=== PATIENT | male | born 1950 | race Caucasian/White ===

== ENCOUNTER 2023-02-27 10:57 | Emergency (ER) | payer MEDICARE, SELFPAY ==
[2023-02-27 11:04] VITALS: BP 139/72; PULSE 84; RESP 16; TEMP 36.6; O2SAT 100
[2023-02-27 11:12] VITALS: BP 139/72; PULSE 84; RESP 16; TEMP 36.6; O2SAT 100
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
== END 2023-02-27 11:50 | disposition home or self-care (01) ==
PROVIDERS: Emergency Provider Registered Nurse
DX: J06.9 Acute upper respiratory infection, unspecified (principal); H92.02 Otalgia, left ear; I10 Essential (primary) hypertension; Z86.711 Personal history of pulmonary embolism
CPT/HCPCS: 99213; G0463

== ENCOUNTER 2025-02-08 18:31 | Emergency (ER) | payer MEDICARE, SELFPAY ==
[2025-02-08 18:36] VITALS: BP 160/84; PULSE 78; RESP 14; TEMP 36.6; O2SAT 99
--- OUTSIDE RECORDS SUMMARY | 2025-02-08 18:36 | XMS_ITS | Encounter Summary ---
Author Organization [facility] Address [address] [place] [address] Care Team Providers Care Hand Nailer Name Role Phone Hunter Mcneal MD Primary Care Provider [phone] Encounter Details Date Type Department Care Team (Late st Contact Info) Description 01/17/2004 Outpatient Historical [facility] MRI DEPT Hunter Mcneal MD [address] [place] [address] [address] [place] [address] CHRONIC SINUSITIS NOS (Primary Dx) Social History Tobacco Use Types Packs/Day Years Used Date Smoking Tobacco: Never Assessed Sex and Gender Information Value Date Recorded Sex Assigned at Male 01/24/2025 4:27 PM INSTRUCTIONAL SYSTEMS DESIGN CONSULTANT Legal Sex Male 2:43 AM INSTRUCTIONAL SYSTEMS DESIGN CONSULTANT Gender Identity Male 01/24/2025 4:27 PM INSTRUCTIONAL SYSTEMS DESIGN CONSULTANT Sexual Orientation Not on file documented as of this encounter Plan of Treatment Upcoming Encounters Date Type Department Care Team (Late st Contact Info) Description 03/01/2025 11:00 AM INSTRUCTIONAL SYSTEMS DESIGN CONSULTANT Appointment [facility] Imaging Services [address] [phone] Coral Rivera PA-C [address] [address] 03/02/2025 12:30 PM INSTRUCTIONAL SYSTEMS DESIGN CONSULTANT Office Visit [facility] UROLOGY - [place] [address] [address] Darrell Correia MD [address] [address] [place] [address] 07/31/2025 11:30 AM CDT Office Visit [facility] Ear Nose and Throat [place] P[place]ett [address] [facility] [address] [place] [address] [place] [address] [facility] [address] [place] [address] documented as of this encounter Visit Diagnoses Diagnosis Unspecified sinusitis (chronic)- Primary documented in this encounter Additional Health Concerns Infection Onset Date Last Indicated Resolved Time R/O COVID-19 09/30/2019 09/30/2019 10/01/2019 11:0 1 PM CDT COVID-19 09/30/2019 09/30/2019 10/30/2019 1:16 AM CDT documented as of this encounter Care Teams Hand Nailer Relationship Specialty Start Date End Date Hunter Mcneal MD [address] [place] [address] PCP - General Family Practice 07/26/24 documented as of this encounter
--- OUTSIDE RECORDS SUMMARY | 2025-02-08 18:36 | XMS_ITS | Encounter Summary ---
Author Organization [facility] Address [address] [place] [address] Care Team Providers Care Quarry Boss Name Role Phone Hunter Mcneal MD Primary Care Provider [phone] Encounter Details Date Type Department Care Team (Late st Contact Info) Description 09/13/2001 Outpatient Historical [facility] [address]A [address] [facility] 100 [place] [address] Hunter Mcneal MD 8[address] [facility] 210 [place] [address] Social History Tobacco Use Types Packs/Day Years Used Date Smoking Tobacco: Never Assessed Sex and Gender Information Value Date Recorded Sex Assigned at Male 01/24/2025 4:27 PM SPLIT AND DRUM ROOM SUPERVISOR Legal Sex Male 2:43 AM SPLIT AND DRUM ROOM SUPERVISOR Gender Identity Male 01/24/2025 4:27 PM SPLIT AND DRUM ROOM SUPERVISOR Sexual Orientation Not on file documented as of this encounter Plan of Treatment Upcoming Encounters Date Type Department Care Team (Late st Contact Info) Description 03/01/2025 11:00 AM SPLIT AND DRUM ROOM SUPERVISOR Appointment [facility] Imaging Services [address] [address] Coral Rivera PA-C [address] [address] 03/02/2025 12:30 PM SPLIT AND DRUM ROOM SUPERVISOR Office Visit [facility] UROLOGY - [place] [address] [address] Darrell Correia MD [address] [facility] Gael [facility] [address] [place] [address] 07/31/2025 11:30 AM CDT Office Visit [facility] [address] [facility] 360 [place] [address] [place] [address] [facility] [address] [place] [address] documented as of this encounter Visit Diagnoses Not on filedocumented in this encounter Additional Health Concerns Infection Onset Date Last Indicated Resolved Time R/O COVID-19 09/30/2019 09/30/2019 10/01/2019 11:0 1 PM CDT COVID-19 09/30/2019 09/30/2019 10/30/2019 1:16 AM CDT documented as of this encounter Care Teams Quarry Boss Relationship Specialty Start Date End Date Hunter Mcneal MD [address] [place] [address] [address] [place] [address] PCP - General Family Practice 07/26/24 documented as of this encounter
--- OUTSIDE RECORDS SUMMARY | 2025-02-08 18:36 | XMS_ITS | Encounter Summary ---
Author Organization [facility] Address [address] [place] [address] Care Team Providers Care Hand Endband Cutter Name Role Phone Hunter Mcneal MD Primary Care Provider [phone] Encounter Details Date Type Department Care Team (Late st Contact Info) Description 09/09/2004 Outpatient Historical [facility] 100A 9[address] [facility] 100 [place] [address] Hunter Mcneal MD 8888 [facility] 210 [place] [address] Social History Tobacco Use Types Packs/Day Years Used Date Smoking Tobacco: Never Assessed Sex and Gender Information Value Date Recorded Sex Assigned at Male 01/24/2025 4:27 PM MANAGER STRATEGY Legal Sex Male 2:43 AM MANAGER STRATEGY Gender Identity Male 01/24/2025 4:27 PM MANAGER STRATEGY Sexual Orientation Not on file documented as of this encounter Plan of Treatment Upcoming Encounters Date Type Department Care Team (Late st Contact Info) Description 03/01/2025 11:00 AM MANAGER STRATEGY Appointment [facility] Imaging Services [address] [phone] Coral Rivera PA-C [address] [address] 03/02/2025 12:30 PM MANAGER STRATEGY Office Visit [facility] UROLOGY - [place] [address] [address] Darrell Correia MD [address] [facility] Gael [facility] 3[address] [place] [address] 07/31/2025 11:30 AM CDT Office Visit [facility] [address] [facility] 360 [place] [address] [place] [address] [facility] [address] [place] [address] documented as of this encounter Visit Diagnoses Not on filedocumented in this encounter Additional Health Concerns Infection Onset Date Last Indicated Resolved Time R/O COVID-19 09/30/2019 09/30/2019 10/01/2019 11:0 1 PM CDT COVID-19 09/30/2019 09/30/2019 10/30/2019 1:16 AM CDT documented as of this encounter Care Teams Hand Endband Cutter Relationship Specialty Start Date End Date Hunter Mcneal MD [address] [place] [address] [address] [place] [address] PCP - General Family Practice 07/26/24 documented as of this encounter
--- OUTSIDE RECORDS SUMMARY | 2025-02-08 18:36 | XMS_ITS | Encounter Summary ---
Author Organization [facility] Address [address] [place] [address] Care Team Providers Care Enterprise Systems Manager Name Role Phone Hunter Mcneal MD Primary Care Provider [phone] Encounter Details Date Type Department Care Team (Late st Contact Info) Description 02/11/2007 Outpatient Historical [facility] 100A 9338 [facility] 100 [place] [address] Hunter Mcneal MD 8[address] [facility] 210 [place] [address] Social History Tobacco Use Types Packs/Day Years Used Date Smoking Tobacco: Never Assessed Sex and Gender Information Value Date Recorded Sex Assigned at Male 01/24/2025 4:27 PM LAND LEASING EXAMINER Legal Sex Male 2:43 AM LAND LEASING EXAMINER Gender Identity Male 01/24/2025 4:27 PM LAND LEASING EXAMINER Sexual Orientation Not on file documented as of this encounter Plan of Treatment Upcoming Encounters Date Type Department Care Team (Late st Contact Info) Description 03/01/2025 11:00 AM LAND LEASING EXAMINER Appointment [facility] Imaging Services [address] [address] Coral Rivera PA-C [address] [address] 03/02/2025 12:30 PM LAND LEASING EXAMINER Office Visit [facility] UROLOGY - [place] [address] [address] Darrell Correia MD [address] [facility] Gael [facility] [address] [place] [address] 07/31/2025 11:30 AM CDT Office Visit [facility] [address] [facility] 360 [place] [address] [place] [address] [facility] [address] [place] [address] documented as of this encounter Visit Diagnoses Not on filedocumented in this encounter Additional Health Concerns Infection Onset Date Last Indicated Resolved Time R/O COVID-19 09/30/2019 09/30/2019 10/01/2019 11:0 1 PM CDT COVID-19 09/30/2019 09/30/2019 10/30/2019 1:16 AM CDT documented as of this encounter Care Teams Enterprise Systems Manager Relationship Specialty Start Date End Date Hunter Mcneal MD [address] [place] [address] [address] [place] [address] PCP - General Family Practice 07/26/24 documented as of this encounter
--- OUTSIDE RECORDS SUMMARY | 2025-02-08 18:36 | XMS_ITS | Encounter Summary ---
Author Organization [facility] Address [address] [place] [address] Care Team Providers Care Program Specialist Name Role Phone Hunter Mcneal MD Primary Care Provider [phone] Encounter Details Date Type Department Care Team (Late st Contact Info) Description 09/03/2000 Outpatient Historical [facility] 100A 9338 [facility] 100 [place] [address] Hunter Mcneal MD 8888 [facility] 210 [place] [address] Social History Tobacco Use Types Packs/Day Years Used Date Smoking Tobacco: Never Assessed Sex and Gender Information Value Date Recorded Sex Assigned at Male 01/24/2025 4:27 PM HR REPRESENTATIVE Legal Sex Male 2:43 AM HR REPRESENTATIVE Gender Identity Male 01/24/2025 4:27 PM HR REPRESENTATIVE Sexual Orientation Not on file documented as of this encounter Plan of Treatment Upcoming Encounters Date Type Department Care Team (Late st Contact Info) Description 03/01/2025 11:00 AM HR REPRESENTATIVE Appointment [facility] Imaging Services [address] [address] Coral Rivera PA-C [address] [address] 03/02/2025 12:30 PM HR REPRESENTATIVE Office Visit [facility] UROLOGY - [place] [address] [address] Darrell Correia MD [address] [facility] Gael [facility] 3[address] [place] [address] 07/31/2025 11:30 AM CDT Office Visit [facility] Ear N[facility] [address] [facility] 360 [place] [address] [place] [address] [facility] [address] [place] [address] documented as of this encounter Visit Diagnoses Not on filedocumented in this encounter Additional Health Concerns Infection Onset Date Last Indicated Resolved Time R/O COVID-19 09/30/2019 09/30/2019 10/01/2019 11:0 1 PM CDT COVID-19 09/30/2019 09/30/2019 10/30/2019 1:16 AM CDT documented as of this encounter Care Teams Program Specialist Relationship Specialty Start Date End Date Hunter Mcneal MD [address] [place] [address] 210 [place] [address] PCP - General Family Practice 07/26/24 documented as of this encounter
--- OUTSIDE RECORDS SUMMARY | 2025-02-08 18:36 | XMS_ITS | Encounter Summary ---
Author Organization [facility] Address [address] [facility] [place] [address] Care Team Providers Care Hot Saw Operator Name Role Phone Hunter Mcneal MD Primary Care Provider [phone] Encounter Details Date Type Department Care Team (Late st Contact Info) Description 06/25/2022 Lab Requisition [facility] - Pathology Lab [address] [place] [address] Samuel Wooten MD [address] [facility] [address] [address] [place] [address] Illness, unspecified Social History Tobacco Use Types Packs/Day Years Used Date Smoking Tobacco: Never Smokeless Tobacco: Never Alcohol Use Standard Drinks/Week Comments Never 0 (1 standard drink = 0.6 oz pur e alcohol) Sex and Gender Information Value Date Recorded Sex Assigned at Not on file Legal Sex Male 6:38 PM PUNCH MACHINE HAND Gender Identity Not on file Sexual Orientation Not on file documented as of this encounter Plan of Treatment Not on file documented as of this encounter Procedures Procedure Name Priority Date/Time Associated Diagnosis Comments PATHOLOGY TISSUE Routine 06/25/2022 1:11 PM CDT Illness, unspecified documented in this encounter Results * PATHOLOGY TISSUE (06/25/2022 1:11 PM CDT) Case Report Surgical Pathology Report Case: [id number] Authorizing Provider: Samuel Wooten MD Collected: 06/25/2022 01:11 PM Ordering Location: [facility] Pathology Lab Received: 06/25/2022 01:12 PM Pathologist: Mouna Cooley MD Specimens: A) - Sinus, Alphonso-Sinus contents B) - Sinus, Left maxillary sinus tissue 06/27/2022 2:33 PM CDT [facility] Final Diagnosis Sinus contents, bilateral, excision (A): - Chronic sinusitis Sinus tissue, left maxillary, excision (B): - Acute inflammation and debris - GMS negative for fungal organisms 06/27/2022 2:33 PM CDT [facility] at 1433 CDT Microscopic Description and Comment Sections demonstrate fragments of bone and sinonasal mucosa with lymphocytes and plasma cells. No eosinophils are appreciated. 06/27/2022 2:33 PM CDT [facility] Clinical History The patient is a 72 year old man with 06/27/2022 2:33 PM CDT [facility] Gross Description The requisition and specimen(s) are identified with the patient's name, Casper Malik. Received in formalin, specimen A, are multiple fragments of aguilar-santiago to brown-santiago tissue with bony fragments measuring 4 x 2.5 x 0.3 cm. The specimen is submitted entirely in cassette A1 after period of decalcification. Received in formalin, specimen B, are multiple fragments of yellow to aguilar-santiago membranous tissue with scattered areas of hemorrhage. The specimen is wrapped in tissue paper and submitted entirely in cassette B1. [place] 06/27/2022 2:33 PM CDT [facility] Pathologist Location at [facility] 06/27/2022 2:33 PM CDT [facility] Disclaimer The performance characteristics of all immunohistochemical and indirect immunofluorescence stains (if any) cited in this report were determined by the Histopathology Laboratory of [facility]. Some of these tests were developed by our own laboratory and have not been cleared or approved by the US Food and Drug Administration. The FDA does not require this test to go through premarket FDA review. These tests are used for clinical purposes. They should not be regarded as investigational or for research. This laboratory is certified under the Clinical Laboratory Improvement Amendments (CLIA) as qualified to perform high complexity clinical laboratory testing. This case has been personally reviewed and interpreted by the attending (teaching) pathologist. 06/27/2022 2:33 PM CDT [facility] Embedded Images 06/27/2022 2:33 PM CDT [facility] Pathology/Cytology SINUS / Unknown 2022 1:11 PM CDT 06/25/2022 1:12 PM CDT Miscellaneous samples (specimen) SINUS / Unknown 06/25/2022 1:11 PM CDT 06/25/2022 1:12 PM CDT us Samuel Wooten MD LAB - PATHOLOGY/CYTOLOGY ORD ERABLES Final Result [facility] [address] [phone] documented in this encounter Visit Diagnoses Diagnosis Illness, unspecified documented in this encounter Care Teams Hot Saw Operator Relationship Specialty Start Date End Date Hunter Mcneal MD PCP - General 01/14/13 documented as of this encounter
--- OUTSIDE RECORDS SUMMARY | 2025-02-08 18:36 | XMS_ITS | Encounter Summary ---
Author Organization [facility] Address [address] [place] [address] Care Team Providers Care Medical Appointment Clerk Name Role Phone Hunter Mcneal MD Primary Care Provider [phone] Encounter Details Date Type Department Care Team (Late st Contact Info) Description 10/12/1998 Outpatient Historical [facility] 100A 9338 [facility] 100 [place] [address] Hunter Mcneal MD 8888 [facility] 210 [place] [address] Social History Tobacco Use Types Packs/Day Years Used Date Smoking Tobacco: Never Assessed Sex and Gender Information Value Date Recorded Sex Assigned at Male 01/24/2025 4:27 PM WEB ANALYTICS DEVELOPER Legal Sex Male 2:43 AM WEB ANALYTICS DEVELOPER Gender Identity Male 01/24/2025 4:27 PM WEB ANALYTICS DEVELOPER Sexual Orientation Not on file documented as of this encounter Plan of Treatment Upcoming Encounters Date Type Department Care Team (Late st Contact Info) Description 03/01/2025 11:00 AM WEB ANALYTICS DEVELOPER Appointment [facility] Imaging Services [address] [address] Coral Rivera PA-C [address] [address] 03/02/2025 12:30 PM WEB ANALYTICS DEVELOPER Office Visit [facility] UROLOGY - [place] [address] [address] Darrell Correia MD [address] [facility] Gael [facility] [address] [place] [address] 07/31/2025 11:30 AM CDT Office Visit [facility] [address] [facility] 360 [place] [address] [place] [address] [facility] 360 [place] [address] documented as of this encounter Visit Diagnoses Not on filedocumented in this encounter Additional Health Concerns Infection Onset Date Last Indicated Resolved Time R/O COVID-19 09/30/2019 09/30/2019 10/01/2019 11:0 1 PM CDT COVID-19 09/30/2019 09/30/2019 10/30/2019 1:16 AM CDT documented as of this encounter Care Teams Medical Appointment Clerk Relationship Specialty Start Date End Date Hunter Mcneal MD [address] [place] [address] [address] [place] [address] PCP - General Family Practice 07/26/24 documented as of this encounter
--- OUTSIDE RECORDS SUMMARY | 2025-02-08 18:36 | XMS_ITS | Encounter Summary ---
Author Organization [facility] Address [address] [place] [address] Care Team Providers Care Intermediate Project Manager Name Role Phone Hunter Mcneal MD Primary Care Provider [phone] Encounter Details Date Type Department Care Team (Latest Contact Info) Description 06/22/2006 Outpatient [facility] Center for [address] [address] Hunter Mcneal MD [address] [place] [address] [address] [place] [address] Headache (Primary Dx) Social History Tobacco Use Types Packs/Day Years Used Date Smoking Tobacco: Never Assessed Sex and Gender Information Value Date Recorded Sex Assigned at Male 01/24/2025 4:27 PM IN SHOP SERVICE TECHNICIAN Legal Sex Male 2:43 AM IN SHOP SERVICE TECHNICIAN Gender Identity Male 01/24/2025 4:27 PM IN SHOP SERVICE TECHNICIAN Sexual Orientation Not on file documented as of this encounter Plan of Treatment Upcoming Encounters Date Type Department Care Team (Late st Contact Info) Description 03/01/2025 11:00 AM IN SHOP SERVICE TECHNICIAN Appointment [facility] Imaging Services [address] [address] Coral Rivera PA-C [address] [address] 03/02/2025 12:30 PM IN SHOP SERVICE TECHNICIAN Office Visit [facility] [place] [address] [address] Darrell Correia MD 607 [address] [facility] 3100 [place] [address] 07/31/2025 11:30 AM CDT Office Visit [facility] Ear Nose and Throat Jose Puckett [address] [facility] 360 [place] [address] [place]twan Cun[place] [address] [place] [address] [address] [place] [address] documented as of this encounter Visit Diagnoses Diagnosis Headache(784.0)- Primary Headache documented in this encounter Additional Health Concerns Infection Onset Date Last Indicated Resolved Time R/O COVID-19 09/30/2019 09/30/2019 10/01/2019 11:0 1 PM CDT COVID-19 09/30/2019 09/30/2019 10/30/2019 1:16 AM CDT documented as of this encounter Care Teams Intermediate Project Manager Relationship Specialty Start Date End Date Hunter Mcneal MD [address] [place] [address] PCP - General Family Practice 07/26/24 documented as of this encounter
--- OUTSIDE RECORDS SUMMARY | 2025-02-08 18:36 | XMS_ITS | Encounter Summary ---
Author Organization [facility] Address [address] [place] [address] Care Team Providers Care Deck Specialist Name Role Phone Hunter Mcneal MD Primary Care Provider [phone] Encounter Details Date Type Department Care Team (Late st Contact Info) Description 04/20/2000 Outpatient Historical [facility] 100A 9338 [facility] 100 [place] [address] Hunter Mcneal MD 8888 [facility] 210 [place] [address] Social History Tobacco Use Types Packs/Day Years Used Date Smoking Tobacco: Never Assessed Sex and Gender Information Value Date Recorded Sex Assigned at Male 01/24/2025 4:27 PM DURALUMIN METALWORKER Legal Sex Male 2:43 AM DURALUMIN METALWORKER Gender Identity Male 01/24/2025 4:27 PM DURALUMIN METALWORKER Sexual Orientation Not on file documented as of this encounter Plan of Treatment Upcoming Encounters Date Type Department Care Team (Late st Contact Info) Description 03/01/2025 11:00 AM DURALUMIN METALWORKER Appointment [facility] Imaging Services [address] [address] Coral Rivera PA-C [address] [address] 03/02/2025 12:30 PM DURALUMIN METALWORKER Office Visit [facility] - [place] [address] [address] Darrell Correia MD 607 [address] [facility] Gael [facility] 3100 [place] [address] 07/31/2025 11:30 AM CDT Office Visit [facility] [address] [facility] 360 [place] [address] [place] [address] [facility] 360 [place] [address] documented as of this encounter Visit Diagnoses Not on filedocumented in this encounter Additional Health Concerns Infection Onset Date Last Indicated Resolved Time R/O COVID-19 09/30/2019 09/30/2019 10/01/2019 11:0 1 PM CDT COVID-19 09/30/2019 09/30/2019 10/30/2019 1:16 AM CDT documented as of this encounter Care Teams Deck Specialist Relationship Specialty Start Date End Date Hunter Mcneal MD [address] [place] [address] [address] [place] [address] PCP - General Family Practice 07/26/24 documented as of this encounter
--- OUTSIDE RECORDS SUMMARY | 2025-02-08 18:36 | XMS_ITS | Encounter Summary ---
Author Organization [facility] Address [address] [place] [address] Care Team Providers Care Coordinator Volunteer Services Name Role Phone Hunter Mcneal MD Primary Care Provider [phone] Encounter Details Date Type Department Care Team (Late st Contact Info) Description 11/17/[address] [facility] 100A [address] [place] 100 [place] [address] Hunter Mcneal MD 8888 [facility] 210 [place] [address] Social History Tobacco Use Types Packs/Day Years Used Date Smoking Tobacco: Never Assessed Sex and Gender Information Value Date Recorded Sex Assigned at Male 01/24/2025 4:27 PM INSERTING OPERATOR Legal Sex Male 2:43 AM INSERTING OPERATOR Gender Identity Male 01/24/2025 4:27 PM INSERTING OPERATOR Sexual Orientation Not on file documented as of this encounter Plan of Treatment Upcoming Encounters Date Type Department Care Team (Late st Contact Info) Description 03/01/2025 11:00 AM INSERTING OPERATOR Appointment [facility] Imaging Services [address] [address] Coral Rivera PA-C [address] [address] 03/02/2025 12:30 PM INSERTING OPERATOR Office Visit [facility] - [place] [address] [address] Darrell Correia MD 607 [address] [facility] Gael [facility] 3100 [place] [address] 07/31/2025 11:30 AM CDT Office Visit [facility] [address] [facility] 360 [place] [address] [place] [address] [facility] [address] [place] [address] documented as of this encounter Visit Diagnoses Not on filedocumented in this encounter Additional Health Concerns Infection Onset Date Last Indicated Resolved Time R/O COVID-19 09/30/2019 09/30/2019 10/01/2019 11:0 1 PM CDT COVID-19 09/30/2019 09/30/2019 10/30/2019 1:16 AM CDT documented as of this encounter Care Teams Coordinator Volunteer Services Relationship Specialty Start Date End Date Hunter Mcneal MD [address] [place] [address] [address] [place] [address] PCP - General Family Practice 07/26/24 documented as of this encounter
--- OUTSIDE RECORDS SUMMARY | 2025-02-08 18:36 | XMS_ITS | Encounter Summary ---
Author Organization [facility] Address [address] [place] [address] Care Team Providers Care Cloth Washer Name Role Phone Hunter Mcneal MD Primary Care Provider [phone] Encounter Details Date Type Department Care Team (Late st Contact Info) Description 07/05/1998 Outpatient Historical [facility] 100A 9338 [facility] 100 [place] [address] Hunter Mcneal MD 8888 [facility] 210 [place] [address] Social History Tobacco Use Types Packs/Day Years Used Date Smoking Tobacco: Never Assessed Sex and Gender Information Value Date Recorded Sex Assigned at Male 01/24/2025 4:27 PM FIELD MARKETING SPECIALIST Legal Sex Male 2:43 AM FIELD MARKETING SPECIALIST Gender Identity Male 01/24/2025 4:27 PM FIELD MARKETING SPECIALIST Sexual Orientation Not on file documented as of this encounter Plan of Treatment Upcoming Encounters Date Type Department Care Team (Late st Contact Info) Description 03/01/2025 11:00 AM FIELD MARKETING SPECIALIST Appointment [facility] Imaging Services [address] [address] Coral Rivera PA-C [address] [address] 03/02/2025 12:30 PM FIELD MARKETING SPECIALIST Office Visit [facility] - [place] [address] [address] Darrell Correia MD 607 S [facility] Gael [facility] 3100 [place] [address] 07/31/2025 11:30 AM CDT Office Visit [facility] [address] [facility] 360 [place] [address] [place] [address] [facility] [address] [place] [address] documented as of this encounter Visit Diagnoses Not on filedocumented in this encounter Additional Health Concerns Infection Onset Date Last Indicated Resolved Time R/O COVID-19 09/30/2019 09/30/2019 10/01/2019 11:0 1 PM CDT COVID-19 09/30/2019 09/30/2019 10/30/2019 1:16 AM CDT documented as of this encounter Care Teams Cloth Washer Relationship Specialty Start Date End Date Hunter Mcneal MD [address] [place] [address] [address] [place] [address] PCP - General Family Practice 07/26/24 documented as of this encounter
--- OUTSIDE RECORDS SUMMARY | 2025-02-08 18:36 | XMS_ITS | Encounter Summary ---
Author Organization [facility] Address [address] [place] [address] Care Team Providers Care Shop Clerk Name Role Phone Hunter Mcneal MD Primary Care Provider [phone] Encounter Details Date Type Department Care Team (Latest Contact Info) Description 06/27/2005 Outpatient Historical [facility] Thom Elizabeth MD [address] [facility] [address] [place] [address] Incisional Hernia with Obstruction (Primary Dx) Social History Tobacco Use Types Packs/Day Years Used Date Smoking Tobacco: Never Assessed Sex and Gender Information Value Date Recorded Sex Assigned at Male 01/24/2025 4:27 PM COLORS CUSTODIAN Legal Sex Male 2:43 AM COLORS CUSTODIAN Gender Identity Male 01/24/2025 4:27 PM COLORS CUSTODIAN Sexual Orientation Not on file documented as of this encounter Plan of Treatment Upcoming Encounters Date Type Department Care Team (Late st Contact Info) Description 03/01/2025 11:00 AM COLORS CUSTODIAN Appointment [facility] Imaging Services [address] [address] Coral Rivera PA-C [address] [address] 03/02/2025 12:30 PM COLORS CUSTODIAN Office Visit [facility] - [place] [address] [facility] 3100 [place] [address] Darrell Correia MD [address] [address] 07/31/2025 11:30 AM CDT Office Visit [facility] Ear Nose and Throat Jose Puckett [address] [facility] [address] [place] [address] [place] [address] [facility] [address] [place] [address] documented as of this encounter Procedures Procedure Name Priority Date/Time Associated Diagnosis Comments HEMOGLOBIN AND HEMATOCRIT Routine 06/24/2005 8:02 AM CDT documented in this encounter Results * HEMOGLOBIN AND HEMATOCRIT (06/24/2005 8:02 AM CDT) HEMOGLOBIN 16.0 13.6 - 16.5 g/dL INTERFACE SYSTEM HEMATOCRIT 44.5 40.0 - 48.0 % INTERFACE SYSTEM 06/24/2005 8:02 AM CDT us Thom Elizabeth MD HEMATOLOGY ORDERABLES Final R esult INTERFACE SYSTEM Refer to clinic/hospital department documented in this encounter Visit Diagnoses Diagnosis Incisional hernia with obstruction- Primary documented in this encounter Additional Health Concerns Infection Onset Date Last Indicated Resolved Time R/O COVID-19 09/30/2019 09/30/2019 10/01/2019 11:0 1 PM CDT COVID-19 09/30/2019 09/30/2019 10/30/2019 1:16 AM CDT documented as of this encounter Care Teams Shop Clerk Relationship Specialty Start Date End Date Hunter Mcneal MD [address] [facility] 210 [place] [address] PCP - General Family Practice 07/26/24 documented as of this encounter
--- OUTSIDE RECORDS SUMMARY | 2025-02-08 18:36 | XMS_ITS | Encounter Summary ---
Author Organization [facility] Address [address] [place] [address] Care Team Providers Care Family Coach Name Role Phone Hunter Mcneal MD Primary Care Provider [phone] Encounter Details Date Type Department Care Team (Late st Contact Info) Description 11/17/2003 Outpatient Historical [facility] 100A 9338 [facility] 100 [place] [address] Hunter [place]ne[place] MD [address] [facility] 210 [place] [address] Social History Tobacco Use Types Packs/Day Years Used Date Smoking Tobacco: Never Assessed Sex and Gender Information Value Date Recorded Sex Assigned at Male 01/24/2025 4:27 PM PRESIDENTIAL SUPPORT SPECIALIST Legal Sex Male 2:43 AM PRESIDENTIAL SUPPORT SPECIALIST Gender Identity Male 01/24/2025 4:27 PM PRESIDENTIAL SUPPORT SPECIALIST Sexual Orientation Not on file documented as of this encounter Plan of Treatment Upcoming Encounters Date Type Department Care Team (Late st Contact Info) Description 03/01/2025 11:00 AM PRESIDENTIAL SUPPORT SPECIALIST Appointment [facility] Imaging Services [address] [address] Coral Rivera PA-C [address] [address] 03/02/2025 12:30 PM PRESIDENTIAL SUPPORT SPECIALIST Office Visit [facility] UROLOGY - [place] [address] [address] Darrell Correia MD 607 [address] [facility] Gael [facility] 3100 [place] [address] 07/31/2025 11:30 AM CDT Office Visit [facility] Ear N[facility] [address] [facility] 360 [place] [address] [place] [address] [facility] 360 [place] [address] documented as of this encounter Visit Diagnoses Not on filedocumented in this encounter Additional Health Concerns Infection Onset Date Last Indicated Resolved Time R/O COVID-19 09/30/2019 09/30/2019 10/01/2019 11:0 1 PM CDT COVID-19 09/30/2019 09/30/2019 10/30/2019 1:16 AM CDT documented as of this encounter Care Teams Family Coach Relationship Specialty Start Date End Date Hunter Mcneal MD [address] [place] [address] [address] [place] [address] PCP - General Family Practice 07/26/24 documented as of this encounter
--- OUTSIDE RECORDS SUMMARY | 2025-02-08 18:36 | XMS_ITS | Encounter Summary ---
Author Organization [facility] Address [address] [place] [address] Care Team Providers Care Radiologic Technologist Chief Name Role Phone Hunter Mcneal MD Primary Care Provider [phone] Encounter Details Date Type Department Care Team (Late st Contact Info) Description 05/25/2003 Outpatient Historical [facility] 100A 9338 [facility] 100 [place] [address] Hunter Mnceal MD 8888 [facility] 210 [place] [address] Social History Tobacco Use Types Packs/Day Years Used Date Smoking Tobacco: Never Assessed Sex and Gender Information Value Date Recorded Sex Assigned at Male 01/24/2025 4:27 PM SENIOR PRODUCT INTEGRITY ENGINEER Legal Sex Male 2:43 AM SENIOR PRODUCT INTEGRITY ENGINEER Gender Identity Male 01/24/2025 4:27 PM SENIOR PRODUCT INTEGRITY ENGINEER Sexual Orientation Not on file documented as of this encounter Plan of Treatment Upcoming Encounters Date Type Department Care Team (Late st Contact Info) Description 03/01/2025 11:00 AM SENIOR PRODUCT INTEGRITY ENGINEER Appointment [facility] Imaging Services [address] [address] Coral Rivera PA-C [address] [place] [address] [address] 03/02/2025 12:30 PM SENIOR PRODUCT INTEGRITY ENGINEER Office Visit [facility] - [place] [address] [address] Darrell Correia MD [address] [facility] Gael [facility] 3100 [place] [address] 07/31/2025 11:30 AM CDT Office Visit [facility] [address] [facility] 360 [place] [address] [place] [address] [place] [facility] [address] [place] [address] documented as of this encounter Visit Diagnoses Not on filedocumented in this encounter Additional Health Concerns Infection Onset Date Last Indicated Resolved Time R/O COVID-19 09/30/2019 09/30/2019 10/01/2019 11:0 1 PM CDT COVID-19 09/30/2019 09/30/2019 10/30/2019 1:16 AM CDT documented as of this encounter Care Teams Radiologic Technologist Chief Relationship Specialty Start Date End Date Hunter Mcneal MD [address] [place] [address] [address] [place] [address] PCP - General Family Practice 07/26/24 documented as of this encounter
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
--- OUTSIDE RECORDS SUMMARY | 2025-02-08 18:36 | XMS_ITS | Encounter Summary ---
Author Organization [facility] Address [address] [place] [address] Care Team Providers Care Automotive Sales Representative Name Role Phone Hunter Mcneal MD Primary Care Provider [phone] Encounter Details Date Type Department Care Team (Late st Contact Info) Description 02/13/2004 Outpatient Historical [facility] 100A 9338 [facility] 100 [place] [address] Hunetr Mcneal MD [address] [facility] 210 [place] [address] Social History Tobacco Use Types Packs/Day Years Used Date Smoking Tobacco: Never Assessed Sex and Gender Information Value Date Recorded Sex Assigned at Male 01/24/2025 4:27 PM GLUE JOINTER FEEDER Legal Sex Male 2:43 AM GLUE JOINTER FEEDER Gender Identity Male 01/24/2025 4:27 PM GLUE JOINTER FEEDER Sexual Orientation Not on file documented as of this encounter Plan of Treatment Upcoming Encounters Date Type Department Care Team (Late st Contact Info) Description 03/01/2025 11:00 AM GLUE JOINTER FEEDER Appointment [facility] Imaging Services [address] [address] Coral Rivera PA-C [address] [address] 03/02/2025 12:30 PM GLUE JOINTER FEEDER Office Visit [facility] UROLOGY - [place] [address] [address] Darrell Correia MD 607 [address] [facility] Gael [facility] 3100 [place] [address] 07/31/2025 11:30 AM CDT Office Visit [facility] [address] [facility] 360 [place] [address] [place] [address] [facility] [address] [place] [address] documented as of this encounter Visit Diagnoses Not on filedocumented in this encounter Additional Health Concerns Infection Onset Date Last Indicated Resolved Time R/O COVID-19 09/30/2019 09/30/2019 10/01/2019 11:0 1 PM CDT COVID-19 09/30/2019 09/30/2019 10/30/2019 1:16 AM CDT documented as of this encounter Care Teams Automotive Sales Representative Relationship Specialty Start Date End Date Hunter Mcneal MD [address] [place] [address] [address] [place] [address] PCP - General Family Practice 07/26/24 documented as of this encounter
--- OUTSIDE RECORDS SUMMARY | 2025-02-08 18:36 | XMS_ITS | Encounter Summary ---
Author Organization [facility] Address [address] [place] [address] Care Team Providers Care Launch Operator Name Role Phone Hunter Mcneal MD Primary Care Provider [phone] Encounter Details Date Type Department Care Team (Late st Contact Info) Description 11/11/[address] [facility] 100A 9338 [facility] 100 [place] [address] Hunter Mcneal MD [address] [facility] 210 [place] [address] Social History Tobacco Use Types Packs/Day Years Used Date Smoking Tobacco: Never Assessed Sex and Gender Information Value Date Recorded Sex Assigned at Male 01/24/2025 4:27 PM BANKING SUPERVISOR Legal Sex Male 2:43 AM BANKING SUPERVISOR Gender Identity Male 01/24/2025 4:27 PM BANKING SUPERVISOR Sexual Orientation Not on file documented as of this encounter Plan of Treatment Upcoming Encounters Date Type Department Care Team (Late st Contact Info) Description 03/01/2025 11:00 AM BANKING SUPERVISOR Appointment [facility] Imaging Services [address] [address] Coral Rivera PA-C [address] [address] 03/02/2025 12:30 PM BANKING SUPERVISOR Office Visit [facility] UROLOGY - [place] [address] [address] Darrell Correia MD 607 [address] [facility] Gael [facility] 3100 [place] [address] 07/31/2025 11:30 AM CDT Office Visit [facility] [address] [facility] 360 [place] [address] [place] [address] [facility] [address] [place] [address] documented as of this encounter Visit Diagnoses Not on filedocumented in this encounter Additional Health Concerns Infection Onset Date Last Indicated Resolved Time R/O COVID-19 09/30/2019 09/30/2019 10/01/2019 11:0 1 PM CDT COVID-19 09/30/2019 09/30/2019 10/30/2019 1:16 AM CDT documented as of this encounter Care Teams Launch Operator Relationship Specialty Start Date End Date Hunter Mcneal MD [address] [place] [address] 210 [place] [address] PCP - General Family Practice 07/26/24 documented as of this encounter
--- OUTSIDE RECORDS SUMMARY | 2025-02-08 18:36 | XMS_ITS | Encounter Summary ---
Author Organization [facility] Address [address] [place] [address] Care Team Providers Care Water Resource Project Manager Name Role Phone Hunter Mcneal MD Primary Care Provider [phone] Encounter Details Date Type Department Care Team (Late st Contact Info) Description 06/10/2000 Outpatient Historical [facility] 100A 9338 [facility] 100 [place] [address] Hunter Mcneal MD 8888 [facility] 210 [place] [address] Social History Tobacco Use Types Packs/Day Years Used Date Smoking Tobacco: Never Assessed Sex and Gender Information Value Date Recorded Sex Assigned at Male 01/24/2025 4:27 PM PHARMACIST IN CHARGE Legal Sex Male 2:43 AM PHARMACIST IN CHARGE Gender Identity Male 01/24/2025 4:27 PM PHARMACIST IN CHARGE Sexual Orientation Not on file documented as of this encounter Plan of Treatment Upcoming Encounters Date Type Department Care Team (Late st Contact Info) Description 03/01/2025 11:00 AM PHARMACIST IN CHARGE Appointment [facility] Imaging Services [address] [address] Coral Rivera PA-C [address] [address] 03/02/2025 12:30 PM PHARMACIST IN CHARGE Office Visit [facility] UROLOGY - [place] [address] [address] Darrell Correia MD [address] [facility] Gael [facility] 3100 [place] [address] 07/31/2025 11:30 AM CDT Office Visit [facility] [address] [facility] 360 [place] [address] [place] [address] [facility] [address] [place] [address] documented as of this encounter Visit Diagnoses Not on filedocumented in this encounter Additional Health Concerns Infection Onset Date Last Indicated Resolved Time R/O COVID-19 09/30/2019 09/30/2019 10/01/2019 11:0 1 PM CDT COVID-19 09/30/2019 09/30/2019 10/30/2019 1:16 AM CDT documented as of this encounter Care Teams Water Resource Project Manager Relationship Specialty Start Date End Date Hunter Mcneal MD [address] [place] [address] 210 [place] [address] PCP - General Family Practice 07/26/24 documented as of this encounter
--- OUTSIDE RECORDS SUMMARY | 2025-02-08 18:36 | XMS_ITS | Encounter Summary ---
Author Organization [facility] Address [address] [place] [address] Care Team Providers Care Radiation Therapist Name Role Phone Hunter Mcneal MD Primary Care Provider [phone] Encounter Details Date Type Department Care Team (Late st Contact Info) Description 04/30/[address] [facility] 100A 9338 [facility] 100 [place] [address] Hunter Mcneal MD 8[address] [facility] 210 [place] [address] Social History Tobacco Use Types Packs/Day Years Used Date Smoking Tobacco: Never Assessed Sex and Gender Information Value Date Recorded Sex Assigned at Male 01/24/2025 4:27 PM SIGNALER Legal Sex Male 2:43 AM SIGNALER Gender Identity Male 01/24/2025 4:27 PM SIGNALER Sexual Orientation Not on file documented as of this encounter Plan of Treatment Upcoming Encounters Date Type Department Care Team (Late st Contact Info) Description 03/01/2025 11:00 AM SIGNALER Appointment [facility] Imaging Services [address] [address] Coral Rivera PA-C [address] [address] 03/02/2025 12:30 PM SIGNALER Office Visit [facility] UROLOGY - [place] [address] [address] Darrell Correia MD 607 [address] [facility] Gael [facility] 3100 [place] [address] 07/31/2025 11:30 AM CDT Office Visit [facility] [address] [facility] 360 [place] [address] [place] [address] [facility] [address] [place] [address] documented as of this encounter Visit Diagnoses Not on filedocumented in this encounter Additional Health Concerns Infection Onset Date Last Indicated Resolved Time R/O COVID-19 09/30/2019 09/30/2019 10/01/2019 11:0 1 PM CDT COVID-19 09/30/2019 09/30/2019 10/30/2019 1:16 AM CDT documented as of this encounter Care Teams Radiation Therapist Relationship Specialty Start Date End Date Hunter Mcneal MD [address] [place] [address] 210 [place] [address] PCP - General Family Practice 07/26/24 documented as of this encounter
--- OUTSIDE RECORDS SUMMARY | 2025-02-08 18:36 | XMS_ITS | Encounter Summary ---
Author Organization [facility] Address [address] [place] [address] Care Team Providers Care Elevated Guard Name Role Phone Hunter Mcneal MD Primary Care Provider [phone] Encounter Details Date Type Department Care Team (Late st Contact Info) Description 10/18/1998 Outpatient Historical [facility] MRI DEPT Hunter Mcneal MD [address] [place] [address] [address] [place] [address] Headache(784.0) (Primary Dx) Social History Tobacco Use Types Packs/Day Years Used Date Smoking Tobacco: Never Assessed Sex and Gender Information Value Date Recorded Sex Assigned at Male 01/24/2025 4:27 PM SCALE MECHANIC Legal Sex Male 2:43 AM SCALE MECHANIC Gender Identity Male 01/24/2025 4:27 PM SCALE MECHANIC Sexual Orientation Not on file documented as of this encounter Plan of Treatment Upcoming Encounters Date Type Department Care Team (Late Contact Info) Description 03/01/2025 11:00 AM SCALE MECHANIC Appointment [facility] Imaging Services [address] [address] Coral Rivera PA-C [address] [address] 03/02/2025 12:30 PM SCALE MECHANIC Office Visit [facility] UROLOGY - [place] [address] [address] Darrell Correia MD [address] [place] [address] 07/31/2025 11:30 AM CDT Office Visit [facility] Ear Nose and Throat [place] [address] [facility] 360 [place] [address] [place] [address] [facility] 360 [place] [address] documented as of this encounter Visit Diagnoses Diagnosis Headache(784.0)- Primary Headache documented in this encounter Additional Health Concerns Infection Onset Date Last Indicated Resolved Time R/O COVID-19 09/30/2019 09/30/2019 10/01/2019 11:0 1 PM CDT COVID-19 09/30/2019 09/30/2019 10/30/2019 1:16 AM CDT documented as of this encounter Care Teams Elevated Guard Relationship Specialty Start Date End Date Hunter Mcneal MD [address] [place] [phone] PCP - General Family Practice 07/26/24 documented as of this encounter
--- OUTSIDE RECORDS SUMMARY | 2025-02-08 18:36 | XMS_ITS | Encounter Summary ---
Author Organization [facility] Address [address] [place] [address] Care Team Providers Care Craft Superintendent Name Role Phone Hunter Mcneal MD Primary Care Provider [phone] Encounter Details Date Type Department Care Team (Late st Contact Info) Description 04/22/2002 Outpatient Historical [facility] 100A 9338 [facility] 100 [place] [address] Hunter Mcneal MD 8888 [facility] 210 [place] [address] Social History Tobacco Use Types Packs/Day Years Used Date Smoking Tobacco: Never Assessed Sex and Gender Information Value Date Recorded Sex Assigned at Male 01/24/2025 4:27 PM OCC THERAPY ASST Legal Sex Male 2:43 AM OCC THERAPY ASST Gender Identity Male 01/24/2025 4:27 PM OCC THERAPY ASST Sexual Orientation Not on file documented as of this encounter Plan of Treatment Upcoming Encounters Date Type Department Care Team (Late st Contact Info) Description 03/01/2025 11:00 AM OCC THERAPY ASST Appointment [facility] Imaging Services [address] [address] Coral Rivera PA-C [address] [address] 03/02/2025 12:30 PM OCC THERAPY ASST Office Visit [facility] UROLOGY - [place] [address] [address] Darrell Correia MD 607 S [facility] Gael [facility] 3100 [place] [address] 07/31/2025 11:30 AM CDT Office Visit [facility] [address] [facility] 360 [place] [address] [place] [address] [facility] [address] [place] [address] documented as of this encounter Visit Diagnoses Not on filedocumented in this encounter Additional Health Concerns Infection Onset Date Last Indicated Resolved Time R/O COVID-19 09/30/2019 09/30/2019 10/01/2019 11:0 1 PM CDT COVID-19 09/30/2019 09/30/2019 10/30/2019 1:16 AM CDT documented as of this encounter Care Teams Craft Superintendent Relationship Specialty Start Date End Date Hunter Mcneal MD [address] [place] [address] 210 [place] [address] PCP - General Family Practice 07/26/24 documented as of this encounter
--- OUTSIDE RECORDS SUMMARY | 2025-02-08 18:36 | XMS_ITS | Encounter Summary ---
Author Organization [facility] Address [address] [place] [address] Care Team Providers Care Rn Lpn Cna Name Role Phone Hunter Mcneal MD Primary Care Provider [phone] Encounter Details Date Type Department Care Team (Latest Contact Info) Description 08/02/1999 Outpatient Historical [facility] CARDIOPULMON[facility] Hunter Mcneal MD [address] [address] Shortness of breath (Primary Dx) Social History Tobacco Use Types Packs/Day Years Used Date Smoking Tobacco: Never Assessed Sex and Gender Information Value Date Recorded Sex Assigned at Male 01/24/2025 4:27 PM MONITORING TECH Legal Sex Male 2:43 AM MONITORING TECH Gender Identity Male 01/24/2025 4:27 PM MONITORING TECH Sexual Orientation Not on file documented as of this encounter Plan of Treatment Upcoming Encounters Date Type Department Care Team (Late st Contact Info) Description 03/01/2025 11:00 AM MONITORING TECH Appointment [facility] Imaging Services [address] [address] Coral Rivera PA-C [address] [address] 03/02/2025 12:30 PM MONITORING TECH Office Visit [facility] UROLOGY - [place] [address] [place] [address] [place] [address] Darrell Correia MD [address] [place] [address] [place] [address] 07/31/2025 11:30 AM CDT Office Visit [facility] Ear Nose and Throat [place] [address] [facility] 360 [place] [address] [place] [address] [facility] [address] [place] [address] documented as of this encounter Visit Diagnoses Diagnosis Shortness of breath- Primary documented in this encounter Additional Health Concerns Infection Onset Date Last Indicated Resolved Time R/O COVID-19 09/30/2019 09/30/2019 10/01/2019 11:0 1 PM CDT COVID-19 09/30/2019 09/30/2019 10/30/2019 1:16 AM CDT documented as of this encounter Care Teams Rn Lpn Cna Relationship Specialty Start Date End Date Hunter Mcneal MD [address] [place] [phone] PCP - General Family Practice 07/26/24 documented as of this encounter
--- OUTSIDE RECORDS SUMMARY | 2025-02-08 18:36 | XMS_ITS | Encounter Summary ---
Author Organization [facility] Address [address] [place] [address] Care Team Providers Care Machine Container Washer Name Role Phone Hunter Mcneal MD Primary Care Provider [phone] Encounter Details Date Type Department Care Team (Latest Contact Info) Description 10/30/2006 Outpatient Historical [facility] [place] Page, Marcus Cardenas MD [address] [place] [address] Cervicalgia (Primary Dx) Social History Tobacco Use Types Packs/Day Years Used Date Smoking Tobacco: Never Assessed Sex and Gender Information Value Date Recorded Sex Assigned at Male 01/24/2025 4:27 PM APPLE TURNER Legal Sex Male 2:43 AM APPLE TURNER Gender Identity Male 01/24/2025 4:27 PM APPLE TURNER Sexual Orientation Not on file documented as of this encounter Plan of Treatment Upcoming Encounters Date Type Department Care Team (Late st Contact Info) Description 03/01/2025 11:00 AM APPLE TURNER Appointment [facility] Imaging Services [address] [address] Coral Rivera PA-C [address] [facility] [address] [place] [address] [place] [address] 03/02/2025 12:30 PM APPLE TURNER Office Visit [facility] UROLOGY - [place] [address] [place] [address] Darrell Correia MD 607 [address] [facility] 3100 [place] [address] 07/31/2025 11:30 AM CDT Office Visit [facility] Ear Nose and Throat Jose Puckett [address] [address] [place] [address] [place] [address] [facility] [address] [place] [address] documented as of this encounter Visit Diagnoses Diagnosis Cervicalgia- Primary documented in this encounter Additional Health Concerns Infection Onset Date Last Indicated Resolved Time R/O COVID-19 09/30/2019 09/30/2019 10/01/2019 11:0 1 PM CDT COVID-19 09/30/2019 09/30/2019 10/30/2019 1:16 AM CDT documented as of this encounter Care Teams Machine Container Washer Relationship Specialty Start Date End Date Hunter Mcneal MD [address] [place] [id number] PCP - General Family Practice 07/26/24 documented as of this encounter
--- OUTSIDE RECORDS SUMMARY | 2025-02-08 18:36 | XMS_ITS | Encounter Summary ---
Author Organization [facility] Address [address] [place] [address] Care Team Providers Care Volleyball Coach Name Role Phone Hunter Mcneal MD Primary Care Provider [phone] Encounter Details Date Type Department Care Team (Late st Contact Info) Description 03/05/1998 Outpatient Historical [facility] Hunter Mcneal MD [address] [facility] [address] [place] [address] Unspecified disorder of liver (Primary Dx) Social History Tobacco Use Types Packs/Day Years Used Date Smoking Tobacco: Never Assessed Sex and Gender Information Value Date Recorded Sex Assigned at Male 01/24/2025 4:27 PM MANAGER BAR Legal Sex Male 2:43 AM MANAGER BAR Gender Identity Male 01/24/2025 4:27 PM MANAGER BAR Sexual Orientation Not on file documented as of this encounter Plan of Treatment Upcoming Encounters Date Type Department Care Team (Late st Contact Info) Description 03/01/2025 11:00 AM MANAGER BAR Appointment [facility] Imaging Services [facility] [address] [place] [address] Coral Rivera PA-C [address] [address] 03/02/2025 12:30 PM MANAGER BAR Office Visit [facility] UROLOGY - [place] [address] [address] Darrell Correia MD [address] [place] [address] 07/31/2025 11:30 AM CDT Office Visit [facility] Ear Nose and Throat Josetushar Puckett [address] [facility] 360 [place] [address] [place] [address] [facility] [address] [place] [address] documented as of this encounter Visit Diagnoses Diagnosis Unspecified disorder of liver- Primary documented in this encounter Additional Health Concerns Infection Onset Date Last Indicated Resolved Time R/O COVID-19 09/30/2019 09/30/2019 10/01/2019 11:0 1 PM CDT COVID-19 09/30/2019 09/30/2019 10/30/2019 1:16 AM CDT documented as of this encounter Care Teams Volleyball Coach Relationship Specialty Start Date End Date Hunter Mcneal MD [address] [place] [address] PCP - General Family Practice 07/26/24 documented as of this encounter
--- OUTSIDE RECORDS SUMMARY | 2025-02-08 18:36 | XMS_ITS | Encounter Summary ---
Author Organization [facility] Address [address] [place] [address] Care Team Providers Care Cloth Weigher Name Role Phone Hunter Mcneal MD Primary Care Provider [phone] Encounter Details Date Type Department Care Team (Late st Contact Info) Description 04/09/2007 Outpatient Historical [facility] [address] [facility] 100 [place] [address] Hunter Mcneal MD 8888 [facility] 210 [place] [address] Social History Tobacco Use Types Packs/Day Years Used Date Smoking Tobacco: Never Assessed Sex and Gender Information Value Date Recorded Sex Assigned at Male 01/24/2025 4:27 PM SEAM CLOSER Legal Sex Male 2:43 AM SEAM CLOSER Gender Identity Male 01/24/2025 4:27 PM SEAM CLOSER Sexual Orientation Not on file documented as of this encounter Plan of Treatment Upcoming Encounters Date Type Department Care Team (Late st Contact Info) Description 03/01/2025 11:00 AM SEAM CLOSER Appointment [facility] Imaging Services [address] [address] Coral Rivera PA-C [address] [address] 03/02/2025 12:30 PM SEAM CLOSER Office Visit [facility] UROLOGY - [place] [address] [address] Darrell Correia MD 607 S [facility] Gael [facility] 3100 [place] [address] 07/31/2025 11:30 AM CDT Office Visit [facility] [address] [facility] 360 [place] [address] [place] [address] [facility] [address] [place] [address] documented as of this encounter Visit Diagnoses Not on filedocumented in this encounter Additional Health Concerns Infection Onset Date Last Indicated Resolved Time R/O COVID-19 09/30/2019 09/30/2019 10/01/2019 11:0 1 PM CDT COVID-19 09/30/2019 09/30/2019 10/30/2019 1:16 AM CDT documented as of this encounter Care Teams Cloth Weigher Relationship Specialty Start Date End Date Hunter Mcneal MD [address] [place] [address] 210 [place] [address] PCP - General Family Practice 07/26/24 documented as of this encounter
--- OUTSIDE RECORDS SUMMARY | 2025-02-08 18:36 | XMS_ITS | Encounter Summary ---
Author Organization [facility] Address [address] [place] [address] Care Team Providers Care Fulling Mill Operator Name Role Phone Hunter Mcneal MD Primary Care Provider [phone] Encounter Details Date Type Department Care Team (Late st Contact Info) Description 04/09/2007 Outpatient Historical [facility] 100A 9338 [facility] 100 [place] [address] Hunter Mcneal MD 8888 [facility] 210 [place] [address] Social History Tobacco Use Types Packs/Day Years Used Date Smoking Tobacco: Never Assessed Sex and Gender Information Value Date Recorded Sex Assigned at Male 01/24/2025 4:27 PM SOLAR SALES CONSULTANT Legal Sex Male 2:43 AM SOLAR SALES CONSULTANT Gender Identity Male 01/24/2025 4:27 PM SOLAR SALES CONSULTANT Sexual Orientation Not on file documented as of this encounter Plan of Treatment Upcoming Encounters Date Type Department Care Team (Late st Contact Info) Description 03/01/2025 11:00 AM SOLAR SALES CONSULTANT Appointment [facility] Imaging Services [address] [address] Coral Rivera PA-C [address] [address] 03/02/2025 12:30 PM SOLAR SALES CONSULTANT Office Visit [facility] UROLOGY - [place] [address] [address] Darrell Correia MD 607 [address] [facility] Gael [facility] 3100 [place] [address] 07/31/2025 11:30 AM CDT Office Visit [facility] Ear Nose [facility] [address] [facility] 360 [place] [address] [place] [address] [facility] [address] [place] [address] documented as of this encounter Visit Diagnoses Not on filedocumented in this encounter Additional Health Concerns Infection Onset Date Last Indicated Resolved Time R/O COVID-19 09/30/2019 09/30/2019 10/01/2019 11:0 1 PM CDT COVID-19 09/30/2019 09/30/2019 10/30/2019 1:16 AM CDT documented as of this encounter Care Teams Fulling Mill Operator Relationship Specialty Start Date End Date Hunter Mcneal MD [address] [place] [address] 210 [place] [address] PCP - General Family Practice 07/26/24 documented as of this encounter
--- OUTSIDE RECORDS SUMMARY | 2025-02-08 18:36 | XMS_ITS | Encounter Summary ---
Author Organization [facility] [place] [facility] Address [address] [place] [address] Care Team Providers Care Senior Sql Server Database Developer Name Role Phone Hunter Mcneal MD Primary Care Provider [phone] Encounter Details Date Type Department Care Team (Late st Contact Info) Description 12/01/2005 Outpatient Historical [facility] 100A 9338 [facility] 100 [place] [address] Hunter [place]neal MD 8[address] [facility] 210 [place] [address] Social History Tobacco Use Types Packs/Day Years Used Date Smoking Tobacco: Never Assessed Sex and Gender Information Value Date Recorded Sex Assigned at Male 01/24/2025 4:27 PM AGRICULTURAL LABOR CAMP MANAGER Legal Sex Male 2:43 AM AGRICULTURAL LABOR CAMP MANAGER Gender Identity Male 01/24/2025 4:27 PM AGRICULTURAL LABOR CAMP MANAGER Sexual Orientation Not on file documented as of this encounter Plan of Treatment Upcoming Encounters Date Type Department Care Team (Late st Contact Info) Description 03/01/2025 11:00 AM AGRICULTURAL LABOR CAMP MANAGER Appointment [facility] Imaging Services [address] [address] Coral Rivera PA-C [address] [address] 03/02/2025 12:30 PM AGRICULTURAL LABOR CAMP MANAGER Office Visit [facility] UROLOGY - [place] [address] [address] Darrell Correia MD 607 [address] [facility] Gael [facility] 3100 [place] [address] 07/31/2025 11:30 AM CDT Office Visit [facility] [address] [facility] 360 [place] [address] [place] [address] [facility] [address] [place] [address] documented as of this encounter Visit Diagnoses Not on filedocumented in this encounter Additional Health Concerns Infection Onset Date Last Indicated Resolved Time R/O COVID-19 09/30/2019 09/30/2019 10/01/2019 11:0 1 PM CDT COVID-19 09/30/2019 09/30/2019 10/30/2019 1:16 AM CDT documented as of this encounter Care Teams Senior Sql Server Database Developer Relationship Specialty Start Date End Date Hunter Mcneal MD [address] [place] [address] 210 [place] [address] PCP - General Family Practice 07/26/24 documented as of this encounter
--- OUTSIDE RECORDS SUMMARY | 2025-02-08 18:36 | XMS_ITS | Encounter Summary ---
Author Organization [facility] Address [address] [place] [address] Care Team Providers Care Prosthodontist Name Role Phone Hunter Mcneal MD Primary Care Provider [phone] Encounter Details Date Type Department Care Team (Late st Contact Info) Description 10/02/2003 Outpatient Historical [facility] 100A 9338 [facility] 100 [place] [address] Hunter Mcneal MD 8888 [facility] 210 [place] [address] Social History Tobacco Use Types Packs/Day Years Used Date Smoking Tobacco: Never Assessed Sex and Gender Information Value Date Recorded Sex Assigned at Male 01/24/2025 4:27 PM PULP REFINER OPERATOR Legal Sex Male 2:43 AM PULP REFINER OPERATOR Gender Identity Male 01/24/2025 4:27 PM PULP REFINER OPERATOR Sexual Orientation Not on file documented as of this encounter Plan of Treatment Upcoming Encounters Date Type Department Care Team (Late st Contact Info) Description 03/01/2025 11:00 AM PULP REFINER OPERATOR Appointment [facility] Imaging Services [address] [address] Coral Rivera PA-C [address] [address] 03/02/2025 12:30 PM PULP REFINER OPERATOR Office Visit [facility] UROLOGY - [place] [address] [address] Darrell Correia MD 607 [address] [facility] Gael [facility] 3100 [place] [address] 07/31/2025 11:30 AM CDT Office Visit [facility] [address] [facility] 360 [place] [address] [place] [address] [facility] [address] [place] [address] documented as of this encounter Visit Diagnoses Not on filedocumented in this encounter Additional Health Concerns Infection Onset Date Last Indicated Resolved Time R/O COVID-19 09/30/2019 09/30/2019 10/01/2019 11:0 1 PM CDT COVID-19 09/30/2019 09/30/2019 10/30/2019 1:16 AM CDT documented as of this encounter Care Teams Prosthodontist Relationship Specialty Start Date End Date Hunter Mcneal MD [address] [place] [address] 210 [place] [address] PCP - General Family Practice 07/26/24 documented as of this encounter
--- OUTSIDE RECORDS SUMMARY | 2025-02-08 18:36 | XMS_ITS | Encounter Summary ---
Author Organization [facility] Address [address] [place] [address] Care Team Providers Care Rails Developer Name Role Phone Hunter Mcneal MD Primary Care Provider [phone] Encounter Details Date Type Department Care Team (Late st Contact Info) Description 10/14/2001 Outpatient Historical [facility] 100A 9338 [facility] 100 [place] [address] Hunter Mcneal MD 8888 [facility] 210 [place] [address] Social History Tobacco Use Types Packs/Day Years Used Date Smoking Tobacco: Never Assessed Sex and Gender Information Value Date Recorded Sex Assigned at Male 01/24/2025 4:27 PM HOUSE MOVER HELPER Legal Sex Male 2:43 AM HOUSE MOVER HELPER Gender Identity Male 01/24/2025 4:27 PM HOUSE MOVER HELPER Sexual Orientation Not on file documented as of this encounter Plan of Treatment Upcoming Encounters Date Type Department Care Team (Late st Contact Info) Description 03/01/2025 11:00 AM HOUSE MOVER HELPER Appointment [facility] Imaging Services [address] [address] Coral Rivera PA-C [address] [address] 03/02/2025 12:30 PM HOUSE MOVER HELPER Office Visit [facility] UROLOGY - [place] [address] [address] Darrell Correia MD 607 S [facility] Gael [facility] 3100 [place] [address] 07/31/2025 11:30 AM CDT Office Visit [facility] [address] [facility] 360 [place] [address] [place] [address] [facility] [address] [place] [address] documented as of this encounter Visit Diagnoses Not on filedocumented in this encounter Additional Health Concerns Infection Onset Date Last Indicated Resolved Time R/O COVID-19 09/30/2019 09/30/2019 10/01/2019 11:0 1 PM CDT COVID-19 09/30/2019 09/30/2019 10/30/2019 1:16 AM CDT documented as of this encounter Care Teams Rails Developer Relationship Specialty Start Date End Date Hunter Mcneal MD [address] [place] [address] 210 [place] [address] PCP - General Family Practice 07/26/24 documented as of this encounter
--- OUTSIDE RECORDS SUMMARY | 2025-02-08 18:36 | XMS_ITS | Encounter Summary ---
Author Organization [facility] Address [address] [place] [address] Care Team Providers Care House Carpenter Name Role Phone Hunter Mcneal MD Primary Care Provider [phone] Encounter Details Date Type Department Care Team (Late st Contact Info) Description 12/25/2003 Outpatient Historical [facility] 100A 9338 [facility] 100 [place] [address] Hunter Mcneal MD 8888 [facility] 210 [place] [address] Social History Tobacco Use Types Packs/Day Years Used Date Smoking Tobacco: Never Assessed Sex and Gender Information Value Date Recorded Sex Assigned at Male 01/24/2025 4:27 PM DATABASE SECURITY EXPERT Legal Sex Male 2:43 AM DATABASE SECURITY EXPERT Gender Identity Male 01/24/2025 4:27 PM DATABASE SECURITY EXPERT Sexual Orientation Not on file documented as of this encounter Plan of Treatment Upcoming Encounters Date Type Department Care Team (Late st Contact Info) Description 03/01/2025 11:00 AM DATABASE SECURITY EXPERT Appointment [facility] Imaging Services [address] [address] Coral Rivera PA-C [address] [address] 03/02/2025 12:30 PM DATABASE SECURITY EXPERT Office Visit [facility] UROLOGY - [place] [address] [address] Darrell Correia MD 607 S [facility] Gael [facility] 3100 [place] [address] 07/31/2025 11:30 AM CDT Office Visit [facility] [address] [facility] 360 [place] [address] [place] [address] [facility] [address] [place] [address] documented as of this encounter Visit Diagnoses Not on filedocumented in this encounter Additional Health Concerns Infection Onset Date Last Indicated Resolved Time R/O COVID-19 09/30/2019 09/30/2019 10/01/2019 11:0 1 PM CDT COVID-19 09/30/2019 09/30/2019 10/30/2019 1:16 AM CDT documented as of this encounter Care Teams House Carpenter Relationship Specialty Start Date End Date Hunter Mcneal MD [address] [place] [address] 210 [place] [address] PCP - General Family Practice 07/26/24 documented as of this encounter
--- OUTSIDE RECORDS SUMMARY | 2025-02-08 18:36 | XMS_ITS | Encounter Summary ---
Author Organization [facility] Address [address] [place] [address] Care Team Providers Care Board Runner Name Role Phone Hunter Mcneal MD Primary Care Provider [phone] Encounter Details Date Type Department Care Team (Late st Contact Info) Description 03/13/2000 Inpatient Historical [facility] Hunter Hernandez Jr., MD [address] [place] [address] Anjel Garduno, DMD [address] [place] [id number] Unspecified disease of the jaws (Primary Dx) Social History Tobacco Use Types Packs/Day Years Used Date Smoking Tobacco: Never Assessed Sex and Gender Information Value Date Recorded Sex Assigned at Male 01/24/2025 4:27 PM CAPACITY PLANNING ANALYST Legal Sex Male 2:43 AM CAPACITY PLANNING ANALYST Gender Identity Male 01/24/2025 4:27 PM CAPACITY PLANNING ANALYST Sexual Orientation Not on file documented as of this encounter Plan of Treatment Upcoming Encounters Date Type Department Care Team (Late st Contact Info) Description 03/01/2025 11:00 AM CAPACITY PLANNING ANALYST Appointment [facility] Imaging Services [facility] [address] [place] [address] Coral Rivera PA-C 607 [address] [facility] 3100 [place] [address] 03/02/2025 12:30 PM CAPACITY PLANNING ANALYST Office Visit [facility] UROLOGY - [place] [address] [place] [address] Darrell Correia MD 607 S [facility] 3100 [place] [address] 07/31/2025 11:30 AM CDT Office Visit [facility] Ear Nose and Throat Jose Puckett [address] [facility] 360 [place] [address] [place] [address] [facility] 360 [place] [address] documented as of this encounter Visit Diagnoses Diagnosis Unspecified disease of the jaws- Primary documented in this encounter Additional Health Concerns Infection Onset Date Last Indicated Resolved Time R/O COVID-19 09/30/2019 09/30/2019 10/01/2019 11:0 1 PM CDT COVID-19 09/30/2019 09/30/2019 10/30/2019 1:16 AM CDT documented as of this encounter Care Teams Board Runner Relationship Specialty Start Date End Date Hunter Mcneal MD 88 [facility] 210 [place] [address] PCP - General Family Practice 07/26/24 documented as of this encounter
--- OUTSIDE RECORDS SUMMARY | 2025-02-08 18:36 | XMS_ITS | Encounter Summary ---
Author Organization [facility] Address [address] [place] [address] Care Team Providers Care Pupil Personnel Services Director Name Role Phone Hunter Mcneal MD Primary Care Provider [phone] Encounter Details Date Type Department Care Team (Late st Contact Info) Description 02/26/2007 Outpatient Historical [facility] 100A 9338 [facility] 100 [place] [address] Hunter Mcneal MD 8888 [facility] 210 [place] [address] Social History Tobacco Use Types Packs/Day Years Used Date Smoking Tobacco: Never Assessed Sex and Gender Information Value Date Recorded Sex Assigned at Male 01/24/2025 4:27 PM LEAD PYTHON DEVELOPER Legal Sex Male 2:43 AM LEAD PYTHON DEVELOPER Gender Identity Male 01/24/2025 4:27 PM LEAD PYTHON DEVELOPER Sexual Orientation Not on file documented as of this encounter Plan of Treatment Upcoming Encounters Date Type Department Care Team (Late st Contact Info) Description 03/01/2025 11:00 AM LEAD PYTHON DEVELOPER Appointment [facility] Imaging Services [address] [address] Coral Rivera PA-C [address] [address] 03/02/2025 12:30 PM LEAD PYTHON DEVELOPER Office Visit [facility] UROLOGY - [place] [address] [address] Darrell Correia MD 607 S [facility] Gael [facility] 3100 [place] [address] 07/31/2025 11:30 AM CDT Office Visit [facility] [address] [facility] 360 [place] [address] [place] [address] [facility] [address] [place] [address] documented as of this encounter Visit Diagnoses Not on filedocumented in this encounter Additional Health Concerns Infection Onset Date Last Indicated Resolved Time R/O COVID-19 09/30/2019 09/30/2019 10/01/2019 11:0 1 PM CDT COVID-19 09/30/2019 09/30/2019 10/30/2019 1:16 AM CDT documented as of this encounter Care Teams Pupil Personnel Services Director Relationship Specialty Start Date End Date Hunter Mcneal MD [address] [place] [address] 210 [place] [address] PCP - General Family Practice 07/26/24 documented as of this encounter
--- OUTSIDE RECORDS SUMMARY | 2025-02-08 18:36 | XMS_ITS | Encounter Summary ---
Author Organization [facility] Address [address] [place] [address] Care Team Providers Care Ground Crew Supervisor Name Role Phone Hunter Mcneal MD Primary Care Provider [phone] Encounter Details Date Type Department Care Team (Late st Contact Info) Description 10/25/1999 Outpatient Historical [facility] 100A 9338 [facility] 100 [place] [address] Hunter Mcneal MD 8888 [facility] 210 [place] [address] Social History Tobacco Use Types Packs/Day Years Used Date Smoking Tobacco: Never Assessed Sex and Gender Information Value Date Recorded Sex Assigned at Male 01/24/2025 4:27 PM PATTERNATOR Legal Sex Male 2:43 AM PATTERNATOR Gender Identity Male 01/24/2025 4:27 PM PATTERNATOR Sexual Orientation Not on file documented as of this encounter Plan of Treatment Upcoming Encounters Date Type Department Care Team (Late st Contact Info) Description 03/01/2025 11:00 AM PATTERNATOR Appointment [facility] Imaging Services [address] [address] Coral Rivera PA-C [address] [address] 03/02/2025 12:30 PM PATTERNATOR Office [facility] [place] [address] [address] Darrell Correia MD 607 S [facility] Gael [facility] 3100 [place] [address] 07/31/2025 11:30 AM CDT Office Visit [facility] [address] [facility] 360 [place] [address] [place] [address] [facility] 360 [place] [address] documented as of this encounter Visit Diagnoses Not on filedocumented in this encounter Additional Health Concerns Infection Onset Date Last Indicated Resolved Time R/O COVID-19 09/30/2019 09/30/2019 10/01/2019 11:0 1 PM CDT COVID-19 09/30/2019 09/30/2019 10/30/2019 1:16 AM CDT documented as of this encounter Care Teams Ground Crew Supervisor Relationship Specialty Start Date End Date Hunter Mcneal MD [address] [place] [address] 210 [place] [address] PCP - General Family Practice 07/26/24 documented as of this encounter
--- OUTSIDE RECORDS SUMMARY | 2025-02-08 18:36 | XMS_ITS | Encounter Summary ---
Author Organization [facility] Address [address] [place] [address] Care Team Providers Care Acupuncture Physician Name Role Phone Hunter Mcneal MD Primary Care Provider [phone] Encounter Details Date Type Department Care Team (Late st Contact Info) Description 03/12/2007 Outpatient Historical [facility] 100A 9338 [facility] 100 [place] [address] Hunter Mcneal MD 8888 [facility] 210 [place] [address] Social History Tobacco Use Types Packs/Day Years Used Date Smoking Tobacco: Never Assessed Sex and Gender Information Value Date Recorded Sex Assigned at Male 01/24/2025 4:27 PM ACID CLEANER Legal Sex Male 2:43 AM ACID CLEANER Gender Identity Male 01/24/2025 4:27 PM ACID CLEANER Sexual Orientation Not on file documented as of this encounter Plan of Treatment Upcoming Encounters Date Type Department Care Team (Late st Contact Info) Description 03/01/2025 11:00 AM ACID CLEANER Appointment [facility] Imaging Services [address] [address] Coral Rivera PA-C [address] [address] 03/02/2025 12:30 PM ACID CLEANER Office Visit [facility] - [place] [address] [address] Darrell Correia MD 607 S [facility] Gael [facility] 3100 [place] [address] 07/31/2025 11:30 AM CDT Office Visit [facility] [address] [facility] 360 [place] [address] [place] [address] [facility] [address] [place] [address] documented as of this encounter Visit Diagnoses Not on filedocumented in this encounter Additional Health Concerns Infection Onset Date Last Indicated Resolved Time R/O COVID-19 09/30/2019 09/30/2019 10/01/2019 11:0 1 PM CDT COVID-19 09/30/2019 09/30/2019 10/30/2019 1:16 AM CDT documented as of this encounter Care Teams Acupuncture Physician Relationship Specialty Start Date End Date Hunter Mcneal MD [address] [place] [address] 210 [place] [address] PCP - General Family Practice 07/26/24 documented as of this encounter
--- OUTSIDE RECORDS SUMMARY | 2025-02-08 18:36 | XMS_ITS | Encounter Summary ---
Author Organization [facility] Address [address] [place] [address] Care Team Providers Care Director Supply Name Role Phone Hunter Mcneal MD Primary Care Provider [phone] Encounter Details Date Type Department Care Team (Late st Contact Info) Description 10/13/2003 Outpatient Historical [facility] 100A 9338 [facility] 100 [place] [address] Hunter Mcneal MD 8888 [facility] 210 [place] [address] Social History Tobacco Use Types Packs/Day Years Used Date Smoking Tobacco: Never Assessed Sex and Gender Information Value Date Recorded Sex Assigned at Male 01/24/2025 4:27 PM FIRE PROTECTION ENGINEER Legal Sex Male 2:43 AM FIRE PROTECTION ENGINEER Gender Identity Male 01/24/2025 4:27 PM FIRE PROTECTION ENGINEER Sexual Orientation Not on file documented as of this encounter Plan of Treatment Upcoming Encounters Date Type Department Care Team (Late st Contact Info) Description 03/01/2025 11:00 AM FIRE PROTECTION ENGINEER Appointment [facility] Imaging Services [address] [address] Coral Rivera PA-C [address] [address] 03/02/2025 12:30 PM FIRE PROTECTION ENGINEER Office Visit [facility] - [place] [address] [address] Darrell Correia MD 607 S [facility] Gael [facility] 3100 [place] [address] 07/31/2025 11:30 AM CDT Office Visit [facility] [address] [facility] 360 [place] [address] [place] [address] [facility] [address] [place] [address] documented as of this encounter Visit Diagnoses Not on filedocumented in this encounter Additional Health Concerns Infection Onset Date Last Indicated Resolved Time R/O COVID-19 09/30/2019 09/30/2019 10/01/2019 11:0 1 PM CDT COVID-19 09/30/2019 09/30/2019 10/30/2019 1:16 AM CDT documented as of this encounter Care Teams Director Supply Relationship Specialty Start Date End Date Hunter Mcneal MD [address] [place] [address] 210 [place] [address] PCP - General Family Practice 07/26/24 documented as of this encounter
--- OUTSIDE RECORDS SUMMARY | 2025-02-08 18:36 | XMS_ITS | Encounter Summary ---
Author Organization [facility] Address [address] [place] [address] Care Team Providers Care Contract Officer Name Role Phone Hunter Mcneal MD Primary Care Provider [phone] Encounter Details Date Type Department Care Team (Late st Contact Info) Description 12/18/2006 Outpatient Historical [facility] 100A 9338 [facility] 100 [place] [address] [place] MD 8[address] [facility] 210 [place] [address] Social History Tobacco Use Types Packs/Day Years Used Date Smoking Tobacco: Never Assessed Sex and Gender Information Value Date Recorded Sex Assigned at Male 01/24/2025 4:27 PM PURCHASING BUYER Legal Sex Male 2:43 AM PURCHASING BUYER Gender Identity Male 01/24/2025 4:27 PM PURCHASING BUYER Sexual Orientation Not on file documented as of this encounter Plan of Treatment Upcoming Encounters Date Type Department Care Team (Late st Contact Info) Description 03/01/2025 11:00 AM PURCHASING BUYER Appointment [facility] Imaging Services [address] [address] Coral Rivera PA-C [address] [address] 03/02/2025 12:30 PM PURCHASING BUYER Office Visit [facility] - [place] [address] [address] Darrell Correia MD 607 S [facility] Gael [facility] 3100 [place] [address] 07/31/2025 11:30 AM CDT Office Visit [facility] [address] [facility] 360 [place] [address] [place] [address] [facility] [address] [place] [address] documented as of this encounter Visit Diagnoses Not on filedocumented in this encounter Additional Health Concerns Infection Onset Date Last Indicated Resolved Time R/O COVID-19 09/30/2019 09/30/2019 10/01/2019 11:0 1 PM CDT COVID-19 09/30/2019 09/30/2019 10/30/2019 1:16 AM CDT documented as of this encounter Care Teams Contract Officer Relationship Specialty Start Date End Date Hunter Mcneal MD [address] [place] [address] 210 [place] [address] PCP - General Family Practice 07/26/24 documented as of this encounter
--- OUTSIDE RECORDS SUMMARY | 2025-02-08 18:36 | XMS_ITS | Encounter Summary ---
Author Organization [facility] Address [address] [place] [address] Care Team Providers Care Administration Assistant Name Role Phone Hunter Mcneal MD Primary Care Provider [phone] Encounter Details Date Type Department Care Team (Late st Contact Info) Description 07/15/1999 Outpatient Historical [facility] [address] [facility] 100 [place] [address] Thom Glasgow MD NO ADDRESS ON FILE Social History Tobacco Use Types Packs/Day Years Used Date Smoking Tobacco: Never Assessed Sex and Gender Information Value Date Recorded Sex Assigned at Male 01/24/2025 4:27 PM SAP PORTAL CONSULTANT Legal Sex Male 2:43 AM SAP PORTAL CONSULTANT Gender Identity Male 01/24/2025 4:27 PM SAP PORTAL CONSULTANT Sexual Orientation Not on file documented as of this encounter Plan of Treatment Upcoming Encounters Date Type Department Care Team (Late Contact Info) Description 03/01/2025 11:00 AM SAP PORTAL CONSULTANT Appointment [facility] Imaging Services [address] [address] Coral Rivera PA-C [address] [place] [address] [place] [address] 03/02/2025 12:30 PM SAP PORTAL CONSULTANT Office Visit [facility] - [place] [address] [place] [address] [place] [address] Darrell Correia MD [facility] [address] [facility] [place] [address] 07/31/2025 11:30 AM CDT Office Visit [facility] Ear Nose and Throat [place] [address] [place] [address] [place] [address] [facility] 360 [place] [address] documented as of this encounter Visit Diagnoses Not on filedocumented in this encounter Additional Health Concerns Infection Onset Date Last Indicated Resolved Time R/O COVID-19 09/30/2019 09/30/2019 10/01/2019 11:0 1 PM CDT COVID-19 09/30/2019 09/30/2019 10/30/2019 1:16 AM CDT documented as of this encounter Care Teams Administration Assistant Relationship Specialty Start Date End Date Hunter Mcneal MD [address] [place] [address] PCP - General Family Practice 07/26/24 documented as of this encounter
--- OUTSIDE RECORDS SUMMARY | 2025-02-08 18:36 | XMS_ITS | Encounter Summary ---
Author Organization [facility] Address [address] [place] [address] Care Team Providers Care Picu Nurse Name Role Phone Hunter Mcneal MD Primary Care Provider [phone] Encounter Details Date Type Department Care Team (Late st Contact Info) Description 05/25/2000 Outpatient Historical [facility] 100A 9338 [facility] 100 [place] [address] Hunter Mcneal MD 8888 [facility] 210 [place] [address] Social History Tobacco Use Types Packs/Day Years Used Date Smoking Tobacco: Never Assessed Sex and Gender Information Value Date Recorded Sex Assigned at Male 01/24/2025 4:27 PM LATHE SET UP OPERATOR Legal Sex Male 2:43 AM LATHE SET UP OPERATOR Gender Identity Male 01/24/2025 4:27 PM LATHE SET UP OPERATOR Sexual Orientation Not on file documented as of this encounter Plan of Treatment Upcoming Encounters Date Type Department Care Team (Late st Contact Info) Description 03/01/2025 11:00 AM LATHE SET UP OPERATOR Appointment [facility] Imaging Services [address] [address] Coral Rivera PA-C [address] [address] 03/02/2025 12:30 PM LATHE SET UP OPERATOR Office [facility]OLOG[facility] - [place] [address] [address] Darrell Correia MD 607 S [facility] Gael [facility] 3100 [place] [address] 07/31/2025 11:30 AM CDT Office Visit [facility] [address] [facility] 360 [place] [address] [place] [address] [facility] [address] [place] [address] documented as of this encounter Visit Diagnoses Not on filedocumented in this encounter Additional Health Concerns Infection Onset Date Last Indicated Resolved Time R/O COVID-19 09/30/2019 09/30/2019 10/01/2019 11:0 1 PM CDT COVID-19 09/30/2019 09/30/2019 10/30/2019 1:16 AM CDT documented as of this encounter Care Teams Picu Nurse Relationship Specialty Start Date End Date Hunter Mcneal MD [address] [place] [address] 210 [place] [address] PCP - General Family Practice 07/26/24 documented as of this encounter
--- OUTSIDE RECORDS SUMMARY | 2025-02-08 18:36 | XMS_ITS | Encounter Summary ---
Author Organization [facility] Address [address] [place] [address] Care Team Providers Care Rug Hooker Hand Name Role Phone Hunter Mcneal MD Primary Care Provider [phone] Encounter Details Date Type Department Care Team (Late st Contact Info) Description 06/23/2000 Outpatient Historical [facility] 100A 9338 [facility] 100 [place] [address] [place] MD 8888 [facility] 210 [place] [address] Social History Tobacco Use Types Packs/Day Years Used Date Smoking Tobacco: Never Assessed Sex and Gender Information Value Date Recorded Sex Assigned at Male 01/24/2025 4:27 PM NUCLEAR CRITICALITY SAFETY ENGINEER Legal Sex Male 2:43 AM NUCLEAR CRITICALITY SAFETY ENGINEER Gender Identity Male 01/24/2025 4:27 PM NUCLEAR CRITICALITY SAFETY ENGINEER Sexual Orientation Not on file documented as of this encounter Plan of Treatment Upcoming Encounters Date Type Department Care Team (Late st Contact Info) Description 03/01/2025 11:00 AM NUCLEAR CRITICALITY SAFETY ENGINEER Appointment [facility] Imaging Services [address] [address] Coral Rivera PA-C [address] [address] 03/02/2025 12:30 PM NUCLEAR CRITICALITY SAFETY ENGINEER [facility] [place] [address] [address] Darrell Correia MD 607 S [facility] Gael [facility] 3100 [place] [address] 07/31/2025 11:30 AM CDT Office Visit [facility] [address] [facility] 360 [place] [address] [place] [address] [facility] [address] [place] [address] documented as of this encounter Visit Diagnoses Not on filedocumented in this encounter Additional Health Concerns Infection Onset Date Last Indicated Resolved Time R/O COVID-19 09/30/2019 09/30/2019 10/01/2019 11:0 1 PM CDT COVID-19 09/30/2019 09/30/2019 10/30/2019 1:16 AM CDT documented as of this encounter Care Teams Rug Hooker Hand Relationship Specialty Start Date End Date Hunter Mcneal MD [address] [place] [address] 210 [place] [address] PCP - General Family Practice 07/26/24 documented as of this encounter
--- OUTSIDE RECORDS SUMMARY | 2025-02-08 18:36 | XMS_ITS | Encounter Summary ---
Author Organization [facility] Address [address] [place] [address] Care Team Providers Care Railroad Operating Engineer Name Role Phone Hunter Mcneal MD Primary Care Provider [phone] Encounter Details Date Type Department Care Team (Late st Contact Info) Description 08/02/1999 Outpatient Historical [facility] 100A 9338 [facility] 100 [place] [address] Hunter Mcneal MD 8888 [facility] 210 [place] [address] Social History Tobacco Use Types Packs/Day Years Used Date Smoking Tobacco: Never Assessed Sex and Gender Information Value Date Recorded Sex Assigned at Male 01/24/2025 4:27 PM DISC PAD GRINDING MACHINE FEEDER Legal Sex Male 2:43 AM DISC PAD GRINDING MACHINE FEEDER Gender Identity Male 01/24/2025 4:27 PM DISC PAD GRINDING MACHINE FEEDER Sexual Orientation Not on file documented as of this encounter Plan of Treatment Upcoming Encounters Date Type Department Care Team (Late st Contact Info) Description 03/01/2025 11:00 AM DISC PAD GRINDING MACHINE FEEDER Appointment [facility] Imaging Services [address] [address] Coral Rivera PA-C [address] [address] 03/02/2025 12:30 PM DISC PAD GRINDING MACHINE FEEDER Office Visit [facility] - [place] [address] [address] Darrell Correia MD 607 S [facility] Gael [facility] 3100 [place] [address] 07/31/2025 11:30 AM CDT Office Visit [facility] [address] [facility] 360 [place] [address] [place] [address] [facility] [address] [place] [address] documented as of this encounter Visit Diagnoses Not on filedocumented in this encounter Additional Health Concerns Infection Onset Date Last Indicated Resolved Time R/O COVID-19 09/30/2019 09/30/2019 10/01/2019 11:0 1 PM CDT COVID-19 09/30/2019 09/30/2019 10/30/2019 1:16 AM CDT documented as of this encounter Care Teams Railroad Operating Engineer Relationship Specialty Start Date End Date Hunter Mcneal MD [address] [place] [address] 210 [place] [address] PCP - General Family Practice 07/26/24 documented as of this encounter
--- OUTSIDE RECORDS SUMMARY | 2025-02-08 18:36 | XMS_ITS | Encounter Summary ---
Author Organization [facility] Address [address] [place] [address] Care Team Providers Care Medical Office Scheduler Name Role Phone Hunter Mcneal MD Primary Care Provider [phone] Encounter Details Date Type Department Care Team (Late st Contact Info) Description 03/11/2004 Outpatient Historical [facility] 100A 9338 [facility] 100 [place] [address] Hunter Mcneal MD 8888 [facility] 210 [place] [address] Social History Tobacco Use Types Packs/Day Years Used Date Smoking Tobacco: Never Assessed Sex and Gender Information Value Date Recorded Sex Assigned at Male 01/24/2025 4:27 PM SOLAR ENERGY ADVISOR Legal Sex Male 2:43 AM SOLAR ENERGY ADVISOR Gender Identity Male 01/24/2025 4:27 PM SOLAR ENERGY ADVISOR Sexual Orientation Not on file documented as of this encounter Plan of Treatment Upcoming Encounters Date Type Department Care Team (Late st Contact Info) Description 03/01/2025 11:00 AM SOLAR ENERGY ADVISOR Appointment [facility] Imaging Services [address] [address] Coral Rivera PA-C [address] [address] 03/02/2025 12:30 PM SOLAR ENERGY ADVISOR Office Visit [facility] - [place] [address] [address] Darrell Correia MD 607 S [facility] Gael [facility] 3100 [place] [address] 07/31/2025 11:30 AM CDT Office Visit [facility] [address] [facility] 360 [place] [address] [place] [address] [facility] 360 [place] [address] documented as of this encounter Visit Diagnoses Not on filedocumented in this encounter Additional Health Concerns Infection Onset Date Last Indicated Resolved Time R/O COVID-19 09/30/2019 09/30/2019 10/01/2019 11:0 1 PM CDT COVID-19 09/30/2019 09/30/2019 10/30/2019 1:16 AM CDT documented as of this encounter Care Teams Medical Office Scheduler Relationship Specialty Start Date End Date Hunter Mcneal MD [address] [place] [address] 210 [place] [address] PCP - General Family Practice 07/26/24 documented as of this encounter
--- OUTSIDE RECORDS SUMMARY | 2025-02-08 18:36 | XMS_ITS | Encounter Summary ---
Author Organization [facility] Address [address] [place] [address] Care Team Providers Care Motor Overhauler Name Role Phone Hunter Mcneal MD Primary Care Provider [phone] Encounter Details Date Type Department Care Team (Late st Contact Info) Description 03/12/2007 Outpatient Historical [facility] 100A 9338 [facility] 100 [place] [address] Hunter Mcneal MD 8888 [facility] 210 [place] [address] Social History Tobacco Use Types Packs/Day Years Used Date Smoking Tobacco: Never Assessed Sex and Gender Information Value Date Recorded Sex Assigned at Male 01/24/2025 4:27 PM GLASS SELECTOR Legal Sex Male 2:43 AM GLASS SELECTOR Gender Identity Male 01/24/2025 4:27 PM GLASS SELECTOR Sexual Orientation Not on file documented as of this encounter Plan of Treatment Upcoming Encounters Date Type Department Care Team (Late st Contact Info) Description 03/01/2025 11:00 AM GLASS SELECTOR Appointment [facility] Imaging Services [address] [address] Coral Rivera PA-C [address] [address] 03/02/2025 12:30 PM GLASS SELECTOR Office Visit [facility] UROLOGY - [place] [address] [address] Darrell Correia MD 607 S [facility] Gael [facility] 3100 [place] [address] 07/31/2025 11:30 AM CDT Office Visit [facility] [address] [facility] 360 [place] [address] [place] [address] [facility] [address] [place] [address] documented as of this encounter Visit Diagnoses Not on filedocumented in this encounter Additional Health Concerns Infection Onset Date Last Indicated Resolved Time R/O COVID-19 09/30/2019 09/30/2019 10/01/2019 11:0 1 PM CDT COVID-19 09/30/2019 09/30/2019 10/30/2019 1:16 AM CDT documented as of this encounter Care Teams Motor Overhauler Relationship Specialty Start Date End Date Hunter Mcneal MD [address] [place] [address] 210 [place] [address] PCP - General Family Practice 07/26/24 documented as of this encounter
--- OUTSIDE RECORDS SUMMARY | 2025-02-08 18:36 | XMS_ITS | Encounter Summary ---
Author Organization [facility] Address [address] [place] [address] Care Team Providers Care Electronic Die Maker Name Role Phone Hunter Mcneal MD Primary Care Provider [phone] Encounter Details Date Type Department Care Team (Late st Contact Info) Description 02/11/2001 Outpatient Historical [facility] 100A 9338 [facility] 100 [place] [address] Hunter Mcneal MD 8888 [facility] 210 [place] [address] Social History Tobacco Use Types Packs/Day Years Used Date Smoking Tobacco: Never Assessed Sex and Gender Information Value Date Recorded Sex Assigned at Male 01/24/2025 4:27 PM ASSISTANT TRACK COACH Legal Sex Male 2:43 AM ASSISTANT TRACK COACH Gender Identity Male 01/24/2025 4:27 PM ASSISTANT TRACK COACH Sexual Orientation Not on file documented as of this encounter Plan of Treatment Upcoming Encounters Date Type Department Care Team (Late st Contact Info) Description 03/01/2025 11:00 AM ASSISTANT TRACK COACH Appointment [facility] Imaging Services [address] [address] Coral Rivera PA-C [address] [address] 03/02/2025 12:30 PM ASSISTANT TRACK COACH Office Visit [facility] UROLOGY - [place] [address] [address] Darrell Correia MD 607 [address] [facility] Gael [facility] 3100 [place] [address] 07/31/2025 11:30 AM CDT Office Visit [facility] [address] [facility] 360 [place] [address] [place] [address] [facility] 360 [place] [address] documented as of this encounter Visit Diagnoses Not on filedocumented in this encounter Additional Health Concerns Infection Onset Date Last Indicated Resolved Time R/O COVID-19 09/30/2019 09/30/2019 10/01/2019 11:0 1 PM CDT COVID-19 09/30/2019 09/30/2019 10/30/2019 1:16 AM CDT documented as of this encounter Care Teams Electronic Die Maker Relationship Specialty Start Date End Date Hunter Mcneal MD [address] [place] [address] 210 [place] [address] PCP - General Family Practice 07/26/24 documented as of this encounter
--- OUTSIDE RECORDS SUMMARY | 2025-02-08 18:36 | XMS_ITS | Encounter Summary ---
Author Organization [facility] Address [address] [place] [address] Care Team Providers Care Mortgage Loan Underwriter Name Role Phone Hunter Mcneal MD Primary Care Provider [phone] Encounter Details Date Type Department Care Team (Late st Contact Info) Description 01/27/2005 Outpatient Historical [facility] 100A 9338 [facility] 100 [place] [address] Hunter Mcneal MD 8888 [facility] 210 [place] [address] Social History Tobacco Use Types Packs/Day Years Used Date Smoking Tobacco: Never Assessed Sex and Gender Information Value Date Recorded Sex Assigned at Male 01/24/2025 4:27 PM SHEET FOLDER Legal Sex Male 2:43 AM SHEET FOLDER Gender Identity Male 01/24/2025 4:27 PM SHEET FOLDER Sexual Orientation Not on file documented as of this encounter Plan of Treatment Upcoming Encounters Date Type Department Care Team (Late st Contact Info) Description 03/01/2025 11:00 AM SHEET FOLDER Appointment [facility] Imaging Services [address] [address] Coral Rivera PA-C [address] [address] 03/02/2025 12:30 PM SHEET FOLDER Office Visit [facility] - [place] [address] [address] Darrell Correia MD 607 S [facility] Gael [facility] 3100 [place] [address] 07/31/2025 11:30 AM CDT Office Visit [facility] [address] [facility] 360 [place] [address] [place] [address] [facility] [address] [place] [address] documented as of this encounter Visit Diagnoses Not on filedocumented in this encounter Additional Health Concerns Infection Onset Date Last Indicated Resolved Time R/O COVID-19 09/30/2019 09/30/2019 10/01/2019 11:0 1 PM CDT COVID-19 09/30/2019 09/30/2019 10/30/2019 1:16 AM CDT documented as of this encounter Care Teams Mortgage Loan Underwriter Relationship Specialty Start Date End Date Hunter Mcneal MD [address] [place] [address] 210 [place] [address] PCP - General Family Practice 07/26/24 documented as of this encounter
--- OUTSIDE RECORDS SUMMARY | 2025-02-08 18:36 | XMS_ITS | Encounter Summary ---
Author Organization [facility] Address [address] [place] [address] Care Team Providers Care Photographic Platemaker Name Role Phone Hunter Mcneal MD Primary Care Provider [phone] Encounter Details Date Type Department Care Team (Late st Contact Info) Description 05/29/1998 Outpatient Historical [facility] 100A 9338 [facility] 100 [place] [address] Hunter Mcneal MD 8888 [facility] 210 [place] [address] Social History Tobacco Use Types Packs/Day Years Used Date Smoking Tobacco: Never Assessed Sex and Gender Information Value Date Recorded Sex Assigned at Male 01/24/2025 4:27 PM OPERATOR AUTOMATED PROCESS Legal Sex Male 2:43 AM OPERATOR AUTOMATED PROCESS Gender Identity Male 01/24/2025 4:27 PM OPERATOR AUTOMATED PROCESS Sexual Orientation Not on file documented as of this encounter Plan of Treatment Upcoming Encounters Date Type Department Care Team (Late st Contact Info) Description 03/01/2025 11:00 AM OPERATOR AUTOMATED PROCESS Appointment [facility] Imaging Services [address] [address] Coral Rivera PA-C [address] [address] 03/02/2025 12:30 PM OPERATOR AUTOMATED PROCESS Office Visit [facility] - [place] [address] [address] Darrell Correia MD 607 [address] [facility] Gael [facility] 3100 [place] [address] 07/31/2025 11:30 AM CDT Office Visit [facility] [address] [facility] 360 [place] [address] [place] [address] [facility] [address] [place] [address] documented as of this encounter Visit Diagnoses Not on filedocumented in this encounter Additional Health Concerns Infection Onset Date Last Indicated Resolved Time R/O COVID-19 09/30/2019 09/30/2019 10/01/2019 11:0 1 PM CDT COVID-19 09/30/2019 09/30/2019 10/30/2019 1:16 AM CDT documented as of this encounter Care Teams Photographic Platemaker Relationship Specialty Start Date End Date Hunter Mcneal MD [address] [place] [address] 210 [place] [address] PCP - General Family Practice 07/26/24 documented as of this encounter
--- OUTSIDE RECORDS SUMMARY | 2025-02-08 18:36 | XMS_ITS | Clinical Summary ---
Author Organization [facility] Address [address] [facility] [place] [address] Care Team Providers Care Tile Ditcher Name Role Phone Hunter Mcneal MD Primary Care Provider [phone] Source Comments [facility],non-owned Affiliates and Associated Physician Practices is amultiple site organization consisting of ambulatory clinics and hospital sitesin [place], [place], [place] and [place]. This disclosure is being madepursuant to the Care Everywhere program and may not contain all information available regarding this patient. Last updated 17.[facility] Allergies Active Allergy Reactions Criticality Noted Date Comments Penicillins Rash Medium 05/08/2022 Sulfa Antibiotics Rash Medium 04/10/2017 Medications * Be aware that medications may not be up to date on this document. Alwaysverify current medications with the patient. Xarelto 10 MG tablet Take 1 (one) tablet by mouth daily with food 3 Active escitalopram (Lexapro) 5 MG tablet Take 1 (one) tablet by mouth once daily 3 Active nortriptyline (Pamelor) 10 MG capsule Take 1 (one) capsule by mouth at bedtime 3 Active meclizine (Antivert) 25 MG tablet Take 1 (one) tablet by mouth 2 times daily 3 Active cetirizine (ZyrTEC) 10 MG tablet Take 1 (one) tablet by mouth once daily Active terazosin (Hytrin) 5 MG capsule Take 1 (one) capsule by mouth at bedtime 3 Active verapamil CR (Isoptin-SR) 180 MG tablet Take 1 (one) tablet by mouth daily with breakfast 3 Active fluticasone propionate (Flonase) 50 MCG/ACT nasal spray [place] 2 (two) sprays into the nose once daily Active finasteride (Proscar) 5 MG tablet Take 1 (one) tablet by mouth once daily 3 Active Multiple Vitamin (Daily Vites) TABS Take 1 (one) tablet by mouth once daily Active Essex-3 Fatty Acids (Essex-3 Fish Oil) 300 MG CAPS Take 1,000 mg by mouth once daily 3 Active esomeprazole (NexIUM) 20 MG capsule Take 1 (one) capsule by mouth once daily 2 Active predniSONE (Deltasone) 10 MG tablet Take 1 (one) tablet by mouth once daily 3 Active Active Problems Problem Noted Date Diagnosed Date Benign prostatic hyperplasia with lower urinary tract symptoms 08/14/2022 08/14/2022 Chronic pulmonary embolism without acute cor pul monale 08/09/2022 08/14/2022 Hx of adenomatous colonic polyps 07/31/2021 08/14/2022 Overview (08/14/2022): Colonoscopy 07/26/21, Dr. Fagan - several tubular adenomas removed, including serrated adenoma Lower leg DVT (deep venous thromboembolism), chr onic 03/16/2021 08/14/2022 Immunizations Immunization Administration Dates Next Due INFLUENZA VACCINE, TRIV. (AF LURIA, FLUZONE TRIVALENT; 6MO+) (IIV3) 10/10/2020,12/10/2016,12/13/2014,2012,10/27/2011,10/29/2010,12/13/2008 COVID PFIZER BIVALENT 12Y+ 30mcg/0.3ML 11/01/2021 Covid Pfizer primary monoval ent 12+ yr 0.3mL Purple cap 05/10/2021,11/07/2020,04/12/2020,2020 INFLUENZA VACCINE, QUADR. (F LUZONE; FLULAVAL; FLUARIX; AFLURIA QUADRIVALENT; 6MO+), 0.5 ML (IIV4) 11/17/2018 PNEUMOCOCCAL PPSV23 08/31/2018 Pneumococcal Pcv13 Conj 01/14/2018 TDAP (7yrs+) 05/28/2017 iNFLUENZA VACCINE, RECOM-BENNETT, QUADR. (FLUBLOCK QUADRIVALENT; 18Y+) (RIV4) 10/22/2017 Social History Tobacco Use Types Packs/Day Years Used Date Smoking Tobacco: Never Smokeless Tobacco: Never Tobacco Cessation:Counseling Given: Not Answered Alcohol Use Standard Drinks/Week Comments Never 0 (1 standard drink = 0.6 oz pur e alcohol) Sex and Gender Information Value Date Recorded Sex Assigned at Not on file Legal Sex Male 6:38 PM CYTOGENETIC TECHNICIAN Gender Identity Not on file Sexual Orientation Not on file Last Filed Vital Signs Vital Sign Reading Time Taken Comments Blood Pressure 132/85 08/14/2022 7:49 AM CDT Pulse 75 08/14/2022 7:49 AM CDT Temperature 36.5 C (97.7 F) 07/03/2022 8:31 AM CDT Respiratory Rate - - Oxygen Saturation - - Inhaled Oxygen Concentration - - Weight 83.9 kg (185 lb) 08/14/2022 7:49 AM CDT Height 180.3 cm (5' 11) 08/14/2022 7:49 AM CDT Body Mass Index 25.8 08/14/2022 7:49 AM CDT Plan of Treatment Health Maintenance Due Date Last Done Comments COLOGUARD (AGES 45-75) - COLON CA SCREENING 1950 COLON MONITORING 1950 COLONOSCOPY - COLON CA SCREENING 1950 CT COLONOGRAPHY - COLON CA SCREENING 1950 Colorectal Cancer Screening 1950 FIT - COLON CA SCREENING 1950 FLEX SIG - COLON CA SCREENING 1950 LIPID TESTING 1950 MEDICARE AWV 12 MONTHS 1950 HEPATITIS C SCREENING 04/27/1968 Respiratory Syncytial Virus (RSV) Vaccine Pt: or over 60 yrs (1 - Risk 50-74 years 1-dose series) 2000 ZOSTER VACCINE (1 of 2) 2000 DEPRESSION SCREENING 02/10/2024 COVID-19 VACCINE ( season) 2024 11/01/2021, 05/10/2021, 11/07/2020, Additional history exists INFLUENZA VACCINE (#1) 2024 , 11/17/2018, 10/22/2017, Additional history exists DTAP/TDAP/TD VACCINES (2 - Td or Tdap) 05/29/2027 05/28/2017 PNEUMOCOCCAL VACCINE 50+ Completed 08/31/2018, 07/2017 HEPATITIS B VACCINE Aged Out No longe r eligible based on patient's age to complete this topic HIB VACCINE Aged Out No longer eligi ble based on patient's age to complete this topic HPV VACCINE Aged Out No longer eligi ble based on patient's age to complete this topic MENINGOCOCCAL (Group B) VACCINE SHARED DECISION-MAKING Aged Out No longer eligible based on patient's age to complete this topic MENINGOCOCCAL GROUPS A/C/Y/W VACCINE Aged Out No longer eligible based on patient's age to complete this topic Insurance MEDICARE [facility] MEDICARE COMMERCIAL GENERIC Care Teams Tile Ditcher Relationship Specialty Start Date End Date Hunter Mcneal MD PCP - General 01/14/13
--- OUTSIDE RECORDS SUMMARY | 2025-02-08 18:36 | XMS_ITS | Encounter Summary ---
Author Organization [facility] Address [address] [place] [address] Care Team Providers Care Food And Beverage Analyst Name Role Phone Hunter Mcneal MD Primary Care Provider [phone] Reason for Visit * Reason Onset Date Comments new doctor referral 02/23/2023 Encounter Details Date Type Department Care Team (Late st Contact Info) Description 02/23/2023 Telephone [facility] 100A 9338 [facility] 100 [place] [address] Hunter Mcneal MD 8888 [facility] [address] [place] [address] new doctor referral Social History Tobacco Use Types Packs/Day Years Used Date Smoking Tobacco: Never Smokeless Tobacco: Never Alcohol Use Standard Drinks/Week Comments Yes 0 (1 standard drink = 0.6 oz pur e alcohol) 0-2/WK Financial Resource Strain Answer Date R ecorded How hard is it for you to pa y for the very basics like food, housing, medical care, and heating? Not hard at all 09/16/2021 Food Insecurity Answer Date Recorded In the past 12 months, have you worried that your food would run out before you had money to buy more? Never true 09/16/2021 In the past 12 months, did y ou run out of food and didn't have money to buy more? Never true 09/16/2021 Transportation Needs Answer Date Record ed In the past 12 months, has l ack of transportation kept you from medical appointments or from getting medications? No 09/16/2021 Lack of Transportation (Non-Medical) Not on file 09/16/2021 Sex and Gender Information Value Date Recorded Sex Assigned at Male 01/24/2025 4:27 PM MARKETING TEAM LEAD Legal Sex Male 2:43 AM MARKETING TEAM LEAD Gender Identity Male 01/24/2025 4:27 PM MARKETING TEAM LEAD Sexual Orientation Not on file Occupation Industry Job Start Date Job End Date Not on file Not on file Not on file Not on file documented as of this encounter Miscellaneous Notes * Telephone Encounter - Mona Hernandez - 02/23/2023 11:26 AM MARKETING TEAM LEAD Provider: Hunter Mcneal MD Next office visit: Visit date not found Caller: Casper Malik Message: Patient would like the dr referral sent to his my [employer] account he can't find the old one that was sent out so he can get a new doctor Call-back Number: [phone] (home) ETING TEAM LEAD documented in this encounter Plan of Treatment Upcoming Encounters Date Type Department Care Team (Late st Contact Info) Description 03/01/2025 11:00 AM MARKETING TEAM LEAD Appointment [facility] Imaging Services [facility] 125 [place] [address] Coral Rivera PA-C [address] [address] 03/02/2025 12:30 PM MARKETING TEAM LEAD Office Visit [facility] UROLOGY - [place] [address] [address] Darrell Correia MD [address] [address] 07/31/2025 11:30 AM CDT Office Visit [facility] Ear Nose and Throat [place] [address] [place] [address] [address] [place] [address] [place] [address] [facility] [address] [place] [address] documented as of this encounter Visit Diagnoses Not on filedocumented in this encounter Care Teams Food And Beverage Analyst Relationship Specialty Start Date End Date Hunter Mcneal MD [address] [address] PCP - General Family Practice 07/26/24 documented as of this encounter
--- OUTSIDE RECORDS SUMMARY | 2025-02-08 18:36 | XMS_ITS | Encounter Summary ---
Author Organization [facility] Address [address] [place] [address] Care Team Providers Care After School Teacher Name Role Phone Hunter Mcneal MD Primary Care Provider [phone] Encounter Details Date Type Department Care Team (Late st Contact Info) Description 09/27/1998 Outpatient Historical [facility] 100A 9338 [facility] 100 [place] [address] Hunter Mcneal MD 8888 [facility] 210 [place] [address] Social History Tobacco Use Types Packs/Day Years Used Date Smoking Tobacco: Never Assessed Sex and Gender Information Value Date Recorded Sex Assigned at Male 01/24/2025 4:27 PM OPTOMETRIST PRESIDENT/PRACTICE OWNER Legal Sex Male 2:43 AM OPTOMETRIST PRESIDENT/PRACTICE OWNER Gender Identity Male 01/24/2025 4:27 PM OPTOMETRIST PRESIDENT/PRACTICE OWNER Sexual Orientation Not on file documented as of this encounter Plan of Treatment Upcoming Encounters Date Type Department Care Team (Late st Contact Info) Description 03/01/2025 11:00 AM OPTOMETRIST PRESIDENT/PRACTICE OWNER Appointment [facility] Imaging Services [address] [address] Coral Rivera PA-C [address] [address] 03/02/2025 12:30 PM OPTOMETRIST PRESIDENT/PRACTICE OWNER Office [facility] UROLOG[facility] - [place] [address] [address] Darrell Correia MD 607 S [facility] Gael [facility] 3100 [place] [address] 07/31/2025 11:30 AM CDT Office Visit [facility] [address] [facility] 360 [place] [address] [place] [address] [facility] [address] [place] [address] documented as of this encounter Visit Diagnoses Not on filedocumented in this encounter Additional Health Concerns Infection Onset Date Last Indicated Resolved Time R/O COVID-19 09/30/2019 09/30/2019 10/01/2019 11:0 1 PM CDT COVID-19 09/30/2019 09/30/2019 10/30/2019 1:16 AM CDT documented as of this encounter Care Teams After School Teacher Relationship Specialty Start Date End Date Hunter Mcneal MD [address] [place] [address] 210 [place] [address] PCP - General Family Practice 07/26/24 documented as of this encounter
--- OUTSIDE RECORDS SUMMARY | 2025-02-08 18:36 | XMS_ITS | Encounter Summary ---
Author Organization [facility] Address [address] [place] [address] Care Team Providers Care Mill Machinist Name Role Phone Hunter Mcneal MD Primary Care Provider [phone] Encounter Details Date Type Department Care Team (Late st Contact Info) Description 02/13/2003 Outpatient Historical [facility] 100A 9338 [facility] 100 [place] [address] Hunter Mcneal MD 8[address] [facility] 210 [place] [address] Social History Tobacco Use Types Packs/Day Years Used Date Smoking Tobacco: Never Assessed Sex and Gender Information Value Date Recorded Sex Assigned at Male 01/24/2025 4:27 PM SUBSTANCE ABUSE NURSE Legal Sex Male 2:43 AM SUBSTANCE ABUSE NURSE Gender Identity Male 01/24/2025 4:27 PM SUBSTANCE ABUSE NURSE Sexual Orientation Not on file documented as of this encounter Plan of Treatment Upcoming Encounters Date Type Department Care Team (Late st Contact Info) Description 03/01/2025 11:00 AM SUBSTANCE ABUSE NURSE Appointment [facility] Imaging Services [address] [address] Coral Rivera PA-C [address] [address] 03/02/2025 12:30 PM SUBSTANCE ABUSE NURSE Office Visit [facility] UROLOGY - [place] [address] [address] Darrell Correia MD 607 S [facility] Gael [facility] 3100 [place] [address] 07/31/2025 11:30 AM CDT Office Visit [facility] [address] [facility] 360 [place] [address] [place] [address] [facility] 360 [place] [address] documented as of this encounter Visit Diagnoses Not on filedocumented in this encounter Additional Health Concerns Infection Onset Date Last Indicated Resolved Time R/O COVID-19 09/30/2019 09/30/2019 10/01/2019 11:0 1 PM CDT COVID-19 09/30/2019 09/30/2019 10/30/2019 1:16 AM CDT documented as of this encounter Care Teams Mill Machinist Relationship Specialty Start Date End Date Hunter Mcneal MD [address] [place] [address] 210 [place] [address] PCP - General Family Practice 07/26/24 documented as of this encounter
--- OUTSIDE RECORDS SUMMARY | 2025-02-08 18:36 | XMS_ITS | Encounter Summary ---
Author Organization [facility] Address [address] [place] [address] Care Team Providers Care Ophthalmic Photographer Name Role Phone Hunter Mcneal MD Primary Care Provider [phone] Encounter Details Date Type Department Care Team (Late st Contact Info) Description 08/18/2006 Outpatient Historical [facility] 100A 9338 [facility] 100 [place] [address] Hunter [place]neal MD 8[address] [facility] 210 [place] [address] Social History Tobacco Use Types Packs/Day Years Used Date Smoking Tobacco: Never Assessed Sex and Gender Information Value Date Recorded Sex Assigned at Male 01/24/2025 4:27 PM SWEEPING COMPOUND BLENDER Legal Sex Male 2:43 AM SWEEPING COMPOUND BLENDER Gender Identity Male 01/24/2025 4:27 PM SWEEPING COMPOUND BLENDER Sexual Orientation Not on file documented as of this encounter Plan of Treatment Upcoming Encounters Date Type Department Care Team (Late st Contact Info) Description 03/01/2025 11:00 AM SWEEPING COMPOUND BLENDER Appointment [facility] Imaging Services [address] [address] Coral Rivera PA-C [address] [address] 03/02/2025 12:30 PM SWEEPING COMPOUND BLENDER Office Visit [facility] UROLOGY - [place] [address] [address] Darrell Correia MD 607 S [facility] Gael [facility] 3100 [place] [address] 07/31/2025 11:30 AM CDT [facility] [address] [facility] 360 [place] [address] [place] [address] [facility] [address] [place] [address] documented as of this encounter Visit Diagnoses Not on filedocumented in this encounter Additional Health Concerns Infection Onset Date Last Indicated Resolved Time R/O COVID-19 09/30/2019 09/30/2019 10/01/2019 11:0 1 PM CDT COVID-19 09/30/2019 09/30/2019 10/30/2019 1:16 AM CDT documented as of this encounter Care Teams Ophthalmic Photographer Relationship Specialty Start Date End Date Hunter Mcneal MD [address] [place] [address] 210 [place] [address] PCP - General Family Practice 07/26/24 documented as of this encounter
--- OUTSIDE RECORDS SUMMARY | 2025-02-08 18:36 | XMS_ITS | Encounter Summary ---
Author Organization [facility] Address [address] [place] [address] Care Team Providers Care Power Tong Operator Name Role Phone Hunter Mcneal MD Primary Care Provider [phone] Encounter Details Date Type Department Care Team (Late st Contact Info) Description 06/17/2006 Outpatient Historical [facility] [address] [facility] [address] [place] [address] Kvng Ferrell MD [address] [facility]. [place], [place] [id number] Social History Tobacco Use Types Packs/Day Years Used Date Smoking Tobacco: Never Assessed Sex and Gender Information Value Date Recorded Sex Assigned at Male 01/24/2025 4:27 PM LANGUAGE ARTS TEACHER Legal Sex Male 2:43 AM LANGUAGE ARTS TEACHER Gender Identity Male 01/24/2025 4:27 PM LANGUAGE ARTS TEACHER Sexual Orientation Not on file documented as of this encounter Plan of Treatment Upcoming Encounters Date Type Department Care Team (Late st Contact Info) Description 03/01/2025 11:00 AM LANGUAGE ARTS TEACHER Appointment [facility] Imaging Services [address] [address] Coral Rivera PA-C [address] [address] 03/02/2025 12:30 PM LANGUAGE ARTS TEACHER Office Visit [facility] [place] [address] [place] [id number] [place] [address] Darrell Correia MD 607 [address] [facility] 3100 [place] [address] 07/31/2025 11:30 AM CDT Office Visit [facility] Ear Nose and Throat Jose Puckett [address] [facility] 360 [place] [address] [place]twan Cun[place] [id number] [place] [address] [address] [place] [address] documented as of this encounter Visit Diagnoses Not on filedocumented in this encounter Additional Health Concerns Infection Onset Date Last Indicated Resolved Time R/O COVID-19 09/30/2019 09/30/2019 10/01/2019 11:0 1 PM CDT COVID-19 09/30/2019 09/30/2019 10/30/2019 1:16 AM CDT documented as of this encounter Care Teams Power Tong Operator Relationship Specialty Start Date End Date Hunter Mcneal MD [address] [place] [address] PCP - General Family Practice 07/26/24 documented as of this encounter
--- OUTSIDE RECORDS SUMMARY | 2025-02-08 18:36 | XMS_ITS | Encounter Summary ---
Author Organization [facility] Address [address] [place] [address] Care Team Providers Care Granite Sandblaster Apprentice Name Role Phone Hunter Mcneal MD Primary Care Provider [phone] Encounter Details Date Type Department Care Team (Late st Contact Info) Description 01/06/2000 Outpatient Historical [facility] [address] 9338 [facility] 100 [place] [address] Hunter Mcneal MD 8888 [facility] 210 [place] [address] Social History Tobacco Use Types Packs/Day Years Used Date Smoking Tobacco: Never Assessed Sex and Gender Information Value Date Recorded Sex Assigned at Male 01/24/2025 4:27 PM HYDROMETALLURGICAL ENGINEER Legal Sex Male 2:43 AM HYDROMETALLURGICAL ENGINEER Gender Identity Male 01/24/2025 4:27 PM HYDROMETALLURGICAL ENGINEER Sexual Orientation Not on file documented as of this encounter Plan of Treatment Upcoming Encounters Date Type Department Care Team (Late st Contact Info) Description 03/01/2025 11:00 AM HYDROMETALLURGICAL ENGINEER Appointment [facility] Imaging Services [address] [address] Coral Rivera PA-C [address] [address] 03/02/2025 12:30 PM HYDROMETALLURGICAL ENGINEER Office Visit [facility] [place] [address] [address] Darrell Correia MD 607 [address] [facility]ael [facility] 3100 [place] [address] 07/31/2025 11:30 AM CDT Office Visit [facility] Ear N[facility] [address] [facility] 360 [place] [address] [place] [address] [facility] [address] [place] [address] documented as of this encounter Visit Diagnoses Not on filedocumented in this encounter Additional Health Concerns Infection Onset Date Last Indicated Resolved Time R/O COVID-19 09/30/2019 09/30/2019 10/01/2019 11:0 1 PM CDT COVID-19 09/30/2019 09/30/2019 10/30/2019 1:16 AM CDT documented as of this encounter Care Teams Granite Sandblaster Apprentice Relationship Specialty Start Date End Date Hunter Mcneal MD [address] [place] [address] 210 [place] [address] PCP - General Family Practice 07/26/24 documented as of this encounter
--- OUTSIDE RECORDS SUMMARY | 2025-02-08 18:36 | XMS_ITS | Encounter Summary ---
Author Organization [facility] Address [address] [place] [address] Care Team Providers Care Retail Receiving Clerk Name Role Phone Hunter Mcneal MD Primary Care Provider [phone] Encounter Details Date Type Department Care Team (Late st Contact Info) Description 10/13/2002 Outpatient Historical [facility] [address] 9338 [facility] 100 [place] [address] Hunter Mcneal MD 8888 [facility] 210 [place] [address] Social History Tobacco Use Types Packs/Day Years Used Date Smoking Tobacco: Never Assessed Sex and Gender Information Value Date Recorded Sex Assigned at Male 01/24/2025 4:27 PM PARTS CLASSIFIER Legal Sex Male 2:43 AM PARTS CLASSIFIER Gender Identity Male 01/24/2025 4:27 PM PARTS CLASSIFIER Sexual Orientation Not on file documented as of this encounter Plan of Treatment Upcoming Encounters Date Type Department Care Team (Late st Contact Info) Description 03/01/2025 11:00 AM PARTS CLASSIFIER Appointment [facility] Imaging Services [address] [address] Coral Rivera PA-C [address] [address] 03/02/2025 12:30 PM PARTS CLASSIFIER Office Visit [facility] [place] [address] [address] Darrell Correia MD 607 [address] [facility]ael [facility] 3100 [place] [address] 07/31/2025 11:30 AM CDT Office Visit [facility] [address] [facility] [address] [place] [address] [place] [address] [facility] [address] [place] [address] documented as of this encounter Visit Diagnoses Not on filedocumented in this encounter Additional Health Concerns Infection Onset Date Last Indicated Resolved Time R/O COVID-19 09/30/2019 09/30/2019 10/01/2019 11:0 1 PM CDT COVID-19 09/30/2019 09/30/2019 10/30/2019 1:16 AM CDT documented as of this encounter Care Teams Retail Receiving Clerk Relationship Specialty Start Date End Date Hunter Mcneal MD [address] [place] [address] 210 [place] [address] PCP - General Family Practice 07/26/24 documented as of this encounter
--- OUTSIDE RECORDS SUMMARY | 2025-02-08 18:36 | XMS_ITS | Encounter Summary ---
Author Organization [facility] Address [address] [place] [address] Care Team Providers Care Spinning Machine Tender Name Role Phone Hunter Mcneal MD Primary Care Provider [phone] Encounter Details Date Type Department Care Team (Late st Contact Info) Description 03/10/2005 Outpatient Historical [facility] 100A 9338 [facility] 100 [place] [address] Hunter Mcneal MD 8888 [facility] 210 [place] [address] Social History Tobacco Use Types Packs/Day Years Used Date Smoking Tobacco: Never Assessed Sex and Gender Information Value Date Recorded Sex Assigned at Male 01/24/2025 4:27 PM ANTIQUE CLOCKS REPAIRER Legal Sex Male 2:43 AM ANTIQUE CLOCKS REPAIRER Gender Identity Male 01/24/2025 4:27 PM ANTIQUE CLOCKS REPAIRER Sexual Orientation Not on file documented as of this encounter Plan of Treatment Upcoming Encounters Date Type Department Care Team (Late st Contact Info) Description 03/01/2025 11:00 AM ANTIQUE CLOCKS REPAIRER Appointment [facility] Imaging Services [address] [address] Coral Rivera PA-C [address] [address] 03/02/2025 12:30 PM ANTIQUE CLOCKS REPAIRER Office Visit [facility] - [place] [address] [address] Darrell Correia MD 607 [address] [facility] Gael [facility] 3100 [place] [address] 07/31/2025 11:30 AM CDT Office Visit [facility] [address] [facility] 360 [place] [address] [place] [address] [facility] [address] [place] [address] documented as of this encounter Visit Diagnoses Not on filedocumented in this encounter Additional Health Concerns Infection Onset Date Last Indicated Resolved Time R/O COVID-19 09/30/2019 09/30/2019 10/01/2019 11:0 1 PM CDT COVID-19 09/30/2019 09/30/2019 10/30/2019 1:16 AM CDT documented as of this encounter Care Teams Spinning Machine Tender Relationship Specialty Start Date End Date Hunter Mcneal MD [address] [place] [address] 210 [place] [address] PCP - General Family Practice 07/26/24 documented as of this encounter
--- OUTSIDE RECORDS SUMMARY | 2025-02-08 18:36 | XMS_ITS | Encounter Summary ---
Author Organization [facility] Address [address] [place] [address] Care Team Providers Care Wing Mailer Machine Operator Name Role Phone Hunter Mcneal MD Primary Care Provider [phone] Encounter Details Date Type Department Care Team (Late st Contact Info) Description 01/07/2001 Outpatient Historical [facility] 100A 9338 [facility] 100 [place] [address] Hunter Mcneal MD 8888 [facility] 210 [place] [address] Social History Tobacco Use Types Packs/Day Years Used Date Smoking Tobacco: Never Assessed Sex and Gender Information Value Date Recorded Sex Assigned at Male 01/24/2025 4:27 PM FRONT DESK CLERK Legal Sex Male 2:43 AM FRONT DESK CLERK Gender Identity Male 01/24/2025 4:27 PM FRONT DESK CLERK Sexual Orientation Not on file documented as of this encounter Plan of Treatment Upcoming Encounters Date Type Department Care Team (Late st Contact Info) Description 03/01/2025 11:00 AM FRONT DESK CLERK Appointment [facility] Imaging Services [address] [address] Coral Rivera PA-C [address] [address] 03/02/2025 12:30 PM FRONT DESK CLERK Office Visit [facility] - [place] [address] [address] Darrell Correia MD 607 [address] [facility] G[facility] 3100 [place] [address] 07/31/2025 11:30 AM CDT Office Visit [facility] [address] [facility] 360 [place] [address] [place] [address] [facility] [address] [place] [address] documented as of this encounter Visit Diagnoses Not on filedocumented in this encounter Additional Health Concerns Infection Onset Date Last Indicated Resolved Time R/O COVID-19 09/30/2019 09/30/2019 10/01/2019 11:0 1 PM CDT COVID-19 09/30/2019 09/30/2019 10/30/2019 1:16 AM CDT documented as of this encounter Care Teams Wing Mailer Machine Operator Relationship Specialty Start Date End Date Hunter Mcneal MD [address] [place] [address] 210 [place] [address] PCP - General Family Practice 07/26/24 documented as of this encounter
--- OUTSIDE RECORDS SUMMARY | 2025-02-08 18:36 | XMS_ITS | Encounter Summary ---
Author Organization [facility] Address [address] [place] [address] Care Team Providers Care Pressure Tester Name Role Phone Hunter Mcneal MD Primary Care Provider [phone] Encounter Details Date Type Department Care Team (Late st Contact Info) Description 04/07/2001 Outpatient Historical [facility] 100A 9338 [facility] 100 [place] [address] Hunter Mcneal MD 8888 [facility] 210 [place] [address] Social History Tobacco Use Types Packs/Day Years Used Date Smoking Tobacco: Never Assessed Sex and Gender Information Value Date Recorded Sex Assigned at Male 01/24/2025 4:27 PM PATTERN CUTTER Legal Sex Male 2:43 AM PATTERN CUTTER Gender Identity Male 01/24/2025 4:27 PM PATTERN CUTTER Sexual Orientation Not on file documented as of this encounter Plan of Treatment Upcoming Encounters Date Type Department Care Team (Late st Contact Info) Description 03/01/2025 11:00 AM PATTERN CUTTER Appointment [facility] Imaging Services [address] [address] Coral Rivera PA-C [address] [address] 03/02/2025 12:30 PM PATTERN CUTTER Office Visit [facility] [place] [address] [address] Darrell Correia MD 607 S [facility] Gael [facility] 3100 [place] [address] 07/31/2025 11:30 AM CDT Office Visit [facility] [address] [facility] 360 [place] [address] [place] [address] [facility] [address] [place] [address] documented as of this encounter Visit Diagnoses Not on filedocumented in this encounter Additional Health Concerns Infection Onset Date Last Indicated Resolved Time R/O COVID-19 09/30/2019 09/30/2019 10/01/2019 11:0 1 PM CDT COVID-19 09/30/2019 09/30/2019 10/30/2019 1:16 AM CDT documented as of this encounter Care Teams Pressure Tester Relationship Specialty Start Date End Date Hunter Mcneal MD [address] [place] [address] 210 [place] [address] PCP - General Family Practice 07/26/24 documented as of this encounter
--- OUTSIDE RECORDS SUMMARY | 2025-02-08 18:36 | XMS_ITS | Encounter Summary ---
Author Organization [facility] Address [address] [place] [address] Care Team Providers Care Oracle Programmer Name Role Phone Hunter Mcneal MD Primary Care Provider [phone] Encounter Details Date Type Department Care Team (Late st Contact Info) Description 06/02/2005 Outpatient Historical [facility] 100A 9338 [facility] 100 [place] [address] Hunter Mcneal MD 8888 [facility] 210 [place] [address] Social History Tobacco Use Types Packs/Day Years Used Date Smoking Tobacco: Never Assessed Sex and Gender Information Value Date Recorded Sex Assigned at Male 01/24/2025 4:27 PM HYDRAULIC AUTO JACK MECHANIC Legal Sex Male 2:43 AM HYDRAULIC AUTO JACK MECHANIC Gender Identity Male 01/24/2025 4:27 PM HYDRAULIC AUTO JACK MECHANIC Sexual Orientation Not on file documented as of this encounter Plan of Treatment Upcoming Encounters Date Type Department Care Team (Late st Contact Info) Description 03/01/2025 11:00 AM HYDRAULIC AUTO JACK MECHANIC Appointment [place] [address] [address] Coral Rivera PA-C [address] [address] 03/02/2025 12:30 PM HYDRAULIC AUTO JACK MECHANIC Office Visit [facility] [place] [address] [address] Darrell Correia MD 607 [address] [facility] Gael [facility] 3100 [place] [address] 07/31/2025 11:30 AM CDT Office Visit [facility] [address] [facility] 360 [place] [address] [place] [address] [facility] [address] [place] [address] documented as of this encounter Visit Diagnoses Not on filedocumented in this encounter Additional Health Concerns Infection Onset Date Last Indicated Resolved Time R/O COVID-19 09/30/2019 09/30/2019 10/01/2019 11:0 1 PM CDT COVID-19 09/30/2019 09/30/2019 10/30/2019 1:16 AM CDT documented as of this encounter Care Teams Oracle Programmer Relationship Specialty Start Date End Date Hunter Mcneal MD [address] [place] [address] 210 [place] [address] PCP - General Family Practice 07/26/24 documented as of this encounter
--- OUTSIDE RECORDS SUMMARY | 2025-02-08 18:36 | XMS_ITS | Encounter Summary ---
Author Organization [facility] Address [address] [place] [address] Care Team Providers Care Silviculturist Name Role Phone Hunter Mcneal MD Primary Care Provider [phone] Encounter Details Date Type Department Care Team (Late st Contact Info) Description 05/13/1999 Outpatient Historical [facility] 100A 9338 [facility] 100 [place] [address] Hunter Mcneal MD 8888 [facility] 210 [place] [address] Social History Tobacco Use Types Packs/Day Years Used Date Smoking Tobacco: Never Assessed Sex and Gender Information Value Date Recorded Sex Assigned at Male 01/24/2025 4:27 PM SCHOOL RESOURCE OFFICER Legal Sex Male 2:43 AM SCHOOL RESOURCE OFFICER Gender Identity Male 01/24/2025 4:27 PM SCHOOL RESOURCE OFFICER Sexual Orientation Not on file documented as of this encounter Plan of Treatment Upcoming Encounters Date Type Department Care Team (Late st Contact Info) Description 03/01/2025 11:00 AM SCHOOL RESOURCE OFFICER Appointment [facility] Imaging Services [address] [address] Coral Rivera PA-C [address] [address] 03/02/2025 12:30 PM SCHOOL RESOURCE OFFICER Office Visit [facility] [place] [address] [address] Darrell Correia MD 607 S [facility] Gael [facility] 3100 [place] [address] 07/31/2025 11:30 AM CDT Office Visit [facility] [address] [facility] 360 [place] [address] [place] [address] [facility] [address] [place] [address] documented as of this encounter Visit Diagnoses Not on filedocumented in this encounter Additional Health Concerns Infection Onset Date Last Indicated Resolved Time R/O COVID-19 09/30/2019 09/30/2019 10/01/2019 11:0 1 PM CDT COVID-19 09/30/2019 09/30/2019 10/30/2019 1:16 AM CDT documented as of this encounter Care Teams Silviculturist Relationship Specialty Start Date End Date Hunter Mcneal MD [address] [place] [address] 210 [place] [address] PCP - General Family Practice 07/26/24 documented as of this encounter
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
--- OUTSIDE RECORDS SUMMARY | 2025-02-08 18:36 | XMS_ITS | Encounter Summary ---
Author Organization [facility] Address [address] [place] [address] Care Team Providers Care Superintendent Stevedoring Name Role Phone Hunter Mcneal MD Primary Care Provider [phone] Encounter Details Date Type Department Care Team (Late st Contact Info) Description 02/28/2002 Outpatient Historical [facility] [address] [facility] [address] [place] [address] Hunter Mcneal MD [address] [facility] [address] [place] [address] Social History Tobacco Use Types Packs/Day Years Used Date Smoking Tobacco: Never Assessed Sex and Gender Information Value Date Recorded Sex Assigned at Male 01/24/2025 4:27 PM MANAGER Legal Sex Male 2:43 AM MANAGER Gender Identity Male 01/24/2025 4:27 PM MANAGER Sexual Orientation Not on file documented as of this encounter Plan of Treatment Upcoming Encounters Date Type Department Care Team (Late st Contact Info) Description 03/01/2025 11:00 AM MANAGER Appointment [facility] Imaging Services [address] [address] Coral Rivera PA-C [address] [address] 03/02/2025 12:30 PM MANAGER Office Visit [facility] UROLOGY - [place] [address] [address] Darrell Correia MD [address] [facility] Gael [facility] [address] [place] [address] 07/31/2025 11:30 AM CDT Office Visit [facility] [address] [facility] [address] [place] [address] [place] [address] [facility] [address] [place] [address] documented as of this encounter Visit Diagnoses Not on filedocumented in this encounter Additional Health Concerns Infection Onset Date Last Indicated Resolved Time R/O COVID-19 09/30/2019 09/30/2019 10/01/2019 11:0 1 PM CDT COVID-19 09/30/2019 09/30/2019 10/30/2019 1:16 AM CDT documented as of this encounter Care Teams Superintendent Stevedoring Relationship Specialty Start Date End Date Hunter Mcneal MD [address] [place] [address] [address] [place] [address] PCP - General Family Practice 07/26/24 documented as of this encounter
--- OUTSIDE RECORDS SUMMARY | 2025-02-08 18:36 | XMS_ITS | Encounter Summary ---
Author Organization [facility] Address [address] [place] [address] Care Team Providers Care Briquetter Operator Name Role Phone Hunter Mcneal MD Primary Care Provider [phone] Encounter Details Date Type Department Care Team (Late st Contact Info) Description 12/22/2002 Outpatient Historical [facility] [address] [facility] [address] [place] [address] Hunter Mcneal MD [address] [facility] [address] [place] [address] Social History Tobacco Use Types Packs/Day Years Used Date Smoking Tobacco: Never Assessed Sex and Gender Information Value Date Recorded Sex Assigned at Male 01/24/2025 4:27 PM INTERNAL AUDIT CONSULTANT Legal Sex Male 2:43 AM INTERNAL AUDIT CONSULTANT Gender Identity Male 01/24/2025 4:27 PM INTERNAL AUDIT CONSULTANT Sexual Orientation Not on file documented as of this encounter Plan of Treatment Upcoming Encounters Date Type Department Care Team (Late st Contact Info) Description 03/01/2025 11:00 AM INTERNAL AUDIT CONSULTANT Appointment [facility] Imaging Services [address] [address] Coral Rivera PA-C [address] [address] 03/02/2025 12:30 PM INTERNAL AUDIT CONSULTANT Office Visit [facility] UROLOGY - [place] [address] [address] Darrell Correia MD [address] [facility] Gael [facility] [address] [place] [address] 07/31/2025 11:30 AM CDT Office [facility] [address] [facility] [address] [place] [address] [place] [address] [facility] [address] [place] [address] documented as of this encounter Visit Diagnoses Not on filedocumented in this encounter Additional Health Concerns Infection Onset Date Last Indicated Resolved Time R/O COVID-19 09/30/2019 09/30/2019 10/01/2019 11:0 1 PM CDT COVID-19 09/30/2019 09/30/2019 10/30/2019 1:16 AM CDT documented as of this encounter Care Teams Briquetter Operator Relationship Specialty Start Date End Date Hunter Mcneal MD [address] [place] [address] [address] [place] [address] PCP - General Family Practice 07/26/24 documented as of this encounter
--- OUTSIDE RECORDS SUMMARY | 2025-02-08 18:36 | XMS_ITS | Encounter Summary ---
Author Organization [facility] Address [address] [place] [address] Care Team Providers Care Direct Sales Representative Name Role Phone Hunter Mcneal MD Primary Care Provider [phone] Encounter Details Date Type Department Care Team (Late st Contact Info) Description 12/01/2006 Outpatient Historical [facility] Marcus Cardoza MD [address] [place] [phone] Social History Tobacco Use Types Packs/Day Years Used Date Smoking Tobacco: Never Assessed Sex and Gender Information Value Date Recorded Sex Assigned at Male 01/24/2025 4:27 PM VEGETABLE HARVEST MACHINE OPERATOR Legal Sex Male 2:43 AM VEGETABLE HARVEST MACHINE OPERATOR Gender Identity Male 01/24/2025 4:27 PM VEGETABLE HARVEST MACHINE OPERATOR Sexual Orientation Not on file documented as of this encounter Plan of Treatment Upcoming Encounters Date Type Department Care Team (Late st Contact Info) Description 03/01/2025 11:00 AM VEGETABLE HARVEST MACHINE OPERATOR Appointment [facility] [address] [address] Coral Rivera PA-C [address] [place] [address] [place] [phone] 03/02/2025 12:30 PM VEGETABLE HARVEST MACHINE OPERATOR Office Visit [facility] - [place] [address] [place] [address] [place] [address] Darrell Correia MD [id number] [place] [address] 07/31/2025 11:30 AM CDT Office Visit [facility] Throat Jose Puckett [id number] [place] [address] [address] [place] [address] [place] [address] [facility] [address] [place] [address] documented as of this encounter Visit Diagnoses Not on filedocumented in this encounter Additional Health Concerns Infection Onset Date Last Indicated Resolved Time R/O COVID-19 09/30/2019 09/30/2019 10/01/2019 11:0 1 PM CDT COVID-19 09/30/2019 09/30/2019 10/30/2019 1:16 AM CDT documented as of this encounter Care Teams Direct Sales Representative Relationship Specialty Start Date End Date Hunter Mcneal MD [address] [place] [phone] PCP - General Family Practice 07/26/24 documented as of this encounter
--- OUTSIDE RECORDS SUMMARY | 2025-02-08 18:37 | XMS_ITS | Encounter Summary ---
Author Organization [facility] Address [address] [place] [address] Care Team Providers Care Office Technologist Name Role Phone Hunter Mcneal MD Primary Care Provider [phone] Encounter Details Date Type Department Care Team (Late st Contact Info) Description 02/04/2007 Outpatient Historical [facility] [address] [facility] [address] [place] [address] Kvng Ferrell MD [address] [facility]. [place], [place] [id number] Social History Tobacco Use Types Packs/Day Years Used Date Smoking Tobacco: Never Assessed Sex and Gender Information Value Date Recorded Sex Assigned at Male 01/24/2025 4:27 PM MERCHANDISE FLOW TEAM MEMBER Legal Sex Male 2:43 AM MERCHANDISE FLOW TEAM MEMBER Gender Identity Male 01/24/2025 4:27 PM MERCHANDISE FLOW TEAM MEMBER Sexual Orientation Not on file documented as of this encounter Plan of Treatment Upcoming Encounters Date Type Department Care Team (Late st Contact Info) Description 03/01/2025 11:00 AM MERCHANDISE FLOW TEAM MEMBER Appointment [facility] [address] [address] Coral Rivera PA-C [address] [address] 03/02/2025 12:30 PM MERCHANDISE FLOW TEAM MEMBER Office Visit [facility] UROLOG[facility] - [place] [address] [place] [id number] [place] [address] Darrell Correia MD [address] [facility] [address] [place] [address] 07/31/2025 11:30 AM CDT Office Visit [facility]at Jose Puckett [address] [facility] [address] [place] [address] [place]twan [place]unha [place] [id number] [place] [address] [address] [place] [address] documented as of this encounter Visit Diagnoses Not on filedocumented in this encounter Additional Health Concerns Infection Onset Date Last Indicated Resolved Time R/O COVID-19 09/30/2019 09/30/2019 10/01/2019 11:0 1 PM CDT COVID-19 09/30/2019 09/30/2019 10/30/2019 1:16 AM CDT documented as of this encounter Care Teams Office Technologist Relationship Specialty Start Date End Date Hunter Mcneal MD [address] [place] [phone] PCP - General Family Practice 07/26/24 documented as of this encounter
--- OUTSIDE RECORDS SUMMARY | 2025-02-08 18:37 | XMS_ITS | Encounter Summary ---
Author Organization [facility] Address [address] [place] [address] Care Team Providers Care Secure Software Assessor Name Role Phone Hunter Mcneal MD Primary Care Provider [phone] Encounter Details Date Type Department Care Team (Late st Contact Info) Description 02/04/[address] [facility] [address] [facility] [address] [place] [address] Kvng Ferrell MD [address] [facility]. [place], [place] [id number] Social History Tobacco Use Types Packs/Day Years Used Date Smoking Tobacco: Never Assessed Sex and Gender Information Value Date Recorded Sex Assigned at Male 01/24/2025 4:27 PM SHOT TUBE MACHINE TENDER Legal Sex Male 2:43 AM SHOT TUBE MACHINE TENDER Gender Identity Male 01/24/2025 4:27 PM SHOT TUBE MACHINE TENDER Sexual Orientation Not on file documented as of this encounter Plan of Treatment Upcoming Encounters Date Type Department Care Team (Late st Contact Info) Description 03/01/2025 11:00 AM SHOT TUBE MACHINE TENDER Appointment [facility] [address] [address] Coral Rivera PA-C [address] [address] 03/02/2025 12:30 PM SHOT TUBE MACHINE TENDER Office Visit [facility] UROLOGY - [place] [address] [place] [id number] [place] [address] Darrell Correia MD [address] [facility] [address] [place] [address] 07/31/2025 11:30 AM CDT Office Visit [facility] Ear Nose [facility] Throat Jose Puckett [address] [facility] [address] [place] [address] [place]twan [place]unha [place] [id number] [place] [address] [address] [place] [address] documented as of this encounter Visit Diagnoses Not on filedocumented in this encounter Additional Health Concerns Infection Onset Date Last Indicated Resolved Time R/O COVID-19 09/30/2019 09/30/2019 10/01/2019 11:0 1 PM CDT COVID-19 09/30/2019 09/30/2019 10/30/2019 1:16 AM CDT documented as of this encounter Care Teams Secure Software Assessor Relationship Specialty Start Date End Date Hunter Mcneal MD [address] [place] [phone] PCP - General Family Practice 07/26/24 documented as of this encounter
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
[2025-02-08 19:03] LABS: EDCOVIDSCREEN Negative (Negative); EDINFLUASCREEN Negative (Negative); EDINFLUBSCREEN Negative (Negative)
== END 2025-02-08 19:10 | disposition home or self-care (01) ==
PROVIDERS: Emergency Provider Nurse Practitioner
DX: J06.9 Acute upper respiratory infection, unspecified (principal); Z20.822 Contact with and (suspected) exposure to COVID-19; I10 Essential (primary) hypertension
CPT/HCPCS: 87426; 87804; 99212; G0463